=== PATIENT | male | born 1935 | race Caucasian/White ===

== ENCOUNTER 2017-02-28 05:15 | Emergency (ER) | payer MEDICARE ==
[2017-02-28 05:49] LABS: Bilirubin Negative (Negative); Blood, Urine Trace (Negative); Clarity Slightly Cloudy (Clear); Glucose, Urine (Dipstick) Negative (Negative); Leukocyte Negative (Negative); Nitrite Negative (Negative); Protein, Urine (Dipstick) Negative (Neg-Trace); Specific Gravity, Urine 1.025 (1.005-1.030); Urobilinogen 0.2 mg/dL (0.2-1.0); pH, Urine 5.5 (5.0-9.0)
[2017-02-28 05:52] LABS: #Basophils 0.1 thou/uL (0.0-0.2); #Eosinphils 0.3 thou/uL (0.0-0.7); #Lymphocytes 1.3 thou/uL (1.20-3.40); #Monocytes 0.8 thou/uL (0.11-0.59); #Neutrophils 4.9 thou/uL (1.40-6.50); %Basophils 1.1 % (0.0-1.0); %Eosinophils 3.8 % (0.0-10.0); %Lymphocytes 17.3 % (21.0-51.0); %Monocytes 10.7 % (0.0-10.0); %Neutrophils 67.2 % (42.0-75.0); Mean Corpuscular HGB CONC 33.1 g/dL (32.0-36.0); Mean Corpuscular Hemoglobin 31.1 pg (27.0-31.0); Mean Corpuscular Volume 93.8 fl (80.0-94.0); Mean Platelet Volume 6.3 fL (7.4-10.4); Platelet Count 169 thou/uL (130-400); RBC Distribution Width 12.6 % (11.5-14.5); Red Blood Cell (RBC) Count 4.84 mill/uL (4.70-6.10); White Blood Cell (WBC) Count 7.2 thou/uL (4.8-10.8)
[2017-02-28 06:05] LABS: Bacteria/HPF None Seen HPF (None Seen); Crystals/HPF RARE CA OXALATE HPF (Negative); Hyaline Casts/LPF NONE SEEN LPF (0-3 Hyaline); RBC/HPF 0-3 HPF (0-3); Squamous Epithelial 0-3 HPF (0-3); WBC/HPF 0-3 HPF (0-3)
[2017-02-28 06:06] LABS: ALT (SGPT) 21 U/L (8-55); AST (SGOT) 18 U/L (5-34); Albumin 3.6 g/dL (3.4-4.8); Alkaline Phosphatase 96 U/L (40-150); Anion Gap 14 mmol/L (10-20); BUN (Urea Nitrogen) 21 mg/dL (8.4-25.7); Bilirubin, Total 0.4 mg/dL (0.2-1.2); Calc. Creatinine Clearance 0 mL/min (70-130); Calcium 9.2 mg/dL (7.8-10.44); Carbon Dioxide 24 mmol/L (23-31); Chloride 105 mmol/L (98-107); Estimated GFR-MDRD 64; Globulin 2.8 g/dL (2.4-3.5); Glucose 106 mg/dL (83-110); Potassium 3.9 mmol/L (3.5-5.1); Protein, Total 6.4 g/dL (5.8-8.1); Sodium 139 mmol/L (136-145)
--- NOTE | 2017-02-28 16:54 | CT ---
PRELIMINARY REPORT/[facility]/EMERGENCY AFTER HOURS PROCEDURE: Addendum created by Navid Rendon DO on 02/28/2017 7:29 AM Central Time ([place] & [place]) EXAM: CT Abdomen and Pelvis With Intravenous Contrast CLINICAL HISTORY: 82 years old, male; Pain; Abdominal pain; Prior surgery; Surgery date: 6+ months; Surgery type: Ellen ; Patient HX: Generalized abd pain x 2 years since r inguinal hernia repair with mesh, states it has generally been worse x a few months but that since last night around 6pm he has also been having l si de abd pain. Denies n/v/d/f/c. S/P ellen, no HX of diverticulitis. Normal stools/urine, no bleeding. TECHNIQUE: Axial computed tomography images of the abdomen and pelvis with intravenous contrast. Coronal reformatted images were created and reviewed. CONTRAST: 85 mL of [id number] administered intravenously. COMPARISON: No relevant prior studies available. FINDINGS: Lower thorax: There are metallic leads in the right heart. ABDOMEN: Liver: Unremarkable. No mass. 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 The gal lbladder is absent. No ductal dilation. Pancreas: Unremarkable. No mass. No ductal dilation. Spleen: Unremarkable. No splenomegaly. Adrenals: Unremarkable. No mass. Kidneys and ureters: There is a small extrarenal pelvis on the left. There is no acute renal abnormal ity. No hydronephrosis. Stomach and bowel: There are moderate size duodenal diverticula in the second and third segments. There is no inflammation. Mild nonacute colonic diverticulosis is present. No obstruction. No mucosal thickening. Appendix: The appendix is normal. PELVIS: Bladder: Unremarkable. No mass. Reproductive: Unremarkable as visualized. ABDOMEN and PELVIS: Intraperitoneal space: Unremarkable. No free air. No significant fluid collection. Bones/joints: There is a syndesmophyte across the left sacroiliac joint. There is enthesopathy of the issue tuberosities. No acute fracture. No dislocation. Soft tissues: There is an intact right inguinal hernia mesh repair with no residual hernia detected. There is a small fat-containing, noninflamed umbilical hernia. Vasculature: There are moderate calcifications of the aorta. No abdominal aortic aneurysm. Lymph nodes: Unremarkable. No enlarged lymph nodes. IMPRESSION: 1. There is no acute intra-abdominal process. 2. There is an intact right inguinal hernia mesh repair with no residual hernia detected. 3. 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 4. Additional nonacute findings as described above. This interpretation was based upon the receipt of 243 image(s). Initial Report created on 02/28/2017 7:28 AM Central Time ([place] & [place]) EXAM: CT Abdomen and Pelvis With Intravenous Contrast CLINICAL HISTORY: 82 years old, male; Pain; Abdominal pain; Prior surgery; Surgery date: 6+ months; Surgery type: Ellen ; Patient HX: Generalized abd pain x 2 years since r inguinal hernia repair with mesh, states it has generally been worse x a few months but that since last night around 6pm he has also been having l si de abd pain. Denies n/v/d/f/c. S/P ellen, no HX of diverticulitis. Normal stools/urine, no bleeding. TECHNIQUE: Axial computed tomography images of the abdomen and pelvis with intravenous contrast. Coronal reformatted images were created and reviewed. CONTRAST: 85 mL of [id number] administered intravenously.COMPARISON: No relevant prior studies available. FINDINGS: Lower thorax: Her metallic leads in the right heart. ABDOMEN: Liver: Unremarkable. No mass. 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 The gal lbladder is absent. No ductal dilation. Pancreas: Unremarkable. No mass. No ductal dilation. Spleen: Unremarkable. No splenomegaly. Adrenals: Unremarkable. No mass. Kidneys and ureters: There is a small extrarenal pelvis on the left. There is no acute renal abnormal ity. No hydronephrosis. Stomach and bowel: There are moderate size duodenal diverticula in the second and third segments. There is no inflammation. Mild nonacute colonic diverticulosis is present. No obstruction. No mucosal thickening. Appendix: The appendix is normal. PELVIS: Bladder: Unremarkable. No mass. Reproductive: Unremarkable as visualized. ABDOMEN and PELVIS: Intraperitoneal space: Unremarkable. No free air. No significant fluid collection. Bones/joints: There is a syndesmophyte across the left sacroiliac joint. There is enthesopathy of the issue tuberosities. No acute fracture. No dislocation. Soft tissues: There is an intact right inguinal hernia mesh repair with no residual hernia detected. There is a small fat-containing, noninflamed umbilical hernia. Vasculature: There are moderate calcifications of the aorta. No abdominal aortic aneurysm. Lymph nodes: Unremarkable. No enlarged lymph nodes. IMPRESSION: 1. There is no acute intra-abdominal process. 2. There is an intact right inguinal hernia mesh repair with no residual hernia detected. 3. 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 4. Additional nonacute findings as described above. This interpretation was based upon the receipt of 243 image(s). Thank you for allowing us to participate in the care of your patient. Dictated and Authenticated by: Navid Rendon DO 02/28/2017 7:28 AM Central Time ([place] & [place]) FINAL REPORT ABDOMEN AND PELVIC CT WITH CONTRAST: FINDINGS/IMPRESSION: I agree with the preliminary interpretation. There is no evidence of an acute process. Additional details are discussed above. POS: [facility]
== END 2017-02-28 07:39 | disposition home or self-care (01) ==
LOC: SCSER 05:15
DX: R10.84 Generalized abdominal pain (principal); Z87.891 Personal history of nicotine dependence
CPT/HCPCS: 74177; 80053; 81003; 81015; 85025

== ENCOUNTER 2017-06-19 10:06 | Emergency (ER) | payer MEDICARE ==
[2017-06-19] MEDS ORDERED: Ketorolac Tromethamine 30 MG/ML VIAL ONE (10:41)
--- NOTE | 2017-06-19 11:54 | RAD ---
LEFT FOOT 3 VIEWS: HISTORY: Left foot pain. Arthritis. FINDINGS: Lisfranc joint alignment is anatomic. Plantar arch is maintained. Moderate degree of osteophytosis is present throughout the foot. Well-corticated ossification at the base of the 5th metatarsal has t he appearance of an old ununited fracture. Calcification of the distal Achilles tendon and posterior aspect of the plantar fascia is apparent o the lateral view. IMPRESSION: 1. Osteoarthritis left foot. No acute osseous abnormalities are demonstrated. No aggressive osseou s erosions. 2. 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 POS: [facility]
== END 2017-06-19 11:57 | disposition home or self-care (01) ==
LOC: SCSER 10:06
DX: L03.116 Cellulitis of left lower limb (principal); Z87.891 Personal history of nicotine dependence; Z79.01 Long term (current) use of anticoagulants; Z79.899 Other long term (current) drug therapy
CPT/HCPCS: 96372; J1885

== ENCOUNTER 2019-01-13 21:32 | Inpatient (IN) | payer MEDICARE ==
[2019-01-13 21:58] LABS: #Eosinphils 0.4 thou/uL (0.0-0.7); #Lymphocytes 1.8 thou/uL (1.20-3.40); #Monocytes 0.8 thou/uL (0.11-0.59); #Neutrophils 4.2 thou/uL (1.40-6.50); %Basophils 0.5 % (0.0-1.0); %Eosinophils 5.6 % (0.0-10.0); %Lymphocytes 24.4 % (21.0-51.0); %Neutrophils 58.5 % (42.0-75.0); Hemoglobin 14.7 g/dL (14.0-18.0); Mean Corpuscular HGB CONC 32.9 g/dL (32.0-36.0); Mean Corpuscular Volume 97.4 fL (78.0-98.0); Platelet Count 169 thou/uL (130-400); RBC Distribution Width 13.9 % (11.5-14.5); Red Blood Cell (RBC) Count 4.59 mill/uL (4.70-6.10); White Blood Cell (WBC) Count 7.2 thou/uL (4.8-10.8)
--- NOTE | 2019-01-13 22:17 | RAD ---
EXAM: Chest one view: HISTORY: Chest pain COMPARISON: 11/03/2015 FINDINGS: Stable left ICD. Heart size: Minimally enlarged but stable Lungs: Clear of acute process. No evidence for confluent pneumonia, pleural effusion, acute edema, or pneumothorax, or other signifi cant acute process. IMPRESSION: No significant acute intrathoracic disease. Atherosclerosis of the aorta.
[2019-01-13 22:19] LABS: ALT (SGPT) 17 U/L (8-55); AST (SGOT) 18 U/L (5-34); Alkaline Phosphatase 93 U/L (40-110); Anion Gap 11 mmol/L (10-20); BUN (Urea Nitrogen) 19 mg/dL (8.4-25.7); Bilirubin, Total 0.5 mg/dL (0.2-1.2); Calc. Creatinine Clearance 0 mL/min (70-130); Calcium 9.5 mg/dL (7.8-10.44); Carbon Dioxide 30 mmol/L (23-31); Chloride 103 mmol/L (98-107); Estimated GFR-MDRD 55; Globulin 2.8 g/dL (2.4-3.5); Glucose 149 mg/dL (83-110); Potassium 3.9 mmol/L (3.5-5.1); Protein, Total 6.8 g/dL (5.8-8.1); Sodium 140 mmol/L (136-145)
[2019-01-13] MEDS ORDERED: Aspirin 325 MG TAB ONE (22:40)
[2019-01-13] MEDS ORDERED: Nitroglycerin 2% Ointment 1 INCH/1 GM Packet ONE (22:40)
[2019-01-14 01:44] LABS: Troponin I Less than 0.010 ng/mL (< 0.028)
[2019-01-14 05:00] LABS: Troponin I 0.015 ng/mL (< 0.028)
--- NOTE | 2019-01-14 07:37 | PDOC.HHP ---
Hospitalist HPI - History of Present Illness Chest pain History of Present Illness: 84 year old male with PMH CAD, stents x 3, atrial fibrillation on eliquis who presented to ED for chest pain, he reports he originally developed a shoulder pain that radiated to upped back, denies any trauma/repetative use/heavy lifting , the pain was worse with sleeping and his L hand would nair asleep when he lays on that side. Yesterday ,the pain migrated to L anterior chest, substernal , nt relieved by OTC ibuprofen, he went to Dr Yoon clinic and was not able to be seen right then, scheduled for appointment the following AM, pain resolved for a time and patient went home, the pain the returned at 7pm, patient went to ED. In ED, troponin x 1 negative, nitro applied without resolution, EKG without acute changes, rate contrlled afib in 70s reviewed by me, currently present on interview. Sound hospitalist consulted for observation admission. Patient sees Dr Yoon of cardiology as outpatient, has 3 stents the last wsa placed 3 years ago, has a pacemaker, has atrial fibrillation and on eliquis, he does not remember much about most recent testing (echo/stress test). He has chronic pitting edema. ED Course: Tele afib rate controlled CXR no acute processes EKG no acute findings troponin negative Hospitalist ROS - Review of Systems Constitutional: reports: chills. denies: fever, sweats Eyes: denies: pain, vision change ENT: denies: nose congestion, mouth swelling, throat pain Respiratory: denies: cough, shortness of breath, SOB with excertion, pleuritic pain Cardiovascular: reports: chest pain, edema (chronic). denies: palpitations Gastrointestinal: denies: nausea, vomiting, abdominal pain Genitourinary: denies: dysuria, frequency Musculoskeletal: reports: shoulder pain (L shoulder), arm pain. denies: neck pain Skin: denies: rash, lesions Neurological: denies: weakness, numbness All other systems reviewed; all pertinent +/- noted in HPI/Subj Hospitalist History - Past Medical History Other Medical History: CAD, stents x 3 Pacemaker atrial fibrillation macular degeneration - Past Surgical History Other Surgical History: Hand surgery Hernia repair Nose reconstruction Cholecystectomy T&A - Family History Other Family History: CAD in brother - Social History Other Social History: Drinks socially Denies drug use Former tobacco user, quit > 10 years ago - Exam General Appearance: NAD, awake alert Eye: PERRL, anicteric sclera ENT: normocephalic atraumatic, moist mucosa Neck: supple, no JVD Heart: no murmur, no gallops, no rubs, irregular Respiratory: CTAB, no wheezes, no rales, no ronchi Gastrointestinal: soft, non-tender, non-distended, normal bowel sounds Extremities: 1+ LE edema Skin: no lesions, no rashes Neurological: cranial nerve grossly intact, normal sensation to touch, no weakness, no focal deficits Musculoskeletal: normal tone, normal strength Psychiatric: normal affect, normal behavior, A&O x 3 Hospitalist Results - Labs Result Diagrams: 01/13/19 21:48 01/13/19 21:48 Lab results: WBC 7.2 thou/uL (4.8-10.8) 01/13/19 21:48 Hgb 14.7 g/dL (14.0-18.0) 01/13/19 21:48 Hct 44.7 % (42.0-52.0) 01/13/19 21:48 MCV 97.4 fL (78.0-98.0) 01/13/19 21:48 Plt Count 169 thou/uL (130-400) 01/13/19 21:48 Neutrophils % 58.5 % (42.0-75.0) 01/13/19 21:48 Sodium 140 mmol/L (136-145) 01/13/19 21:48 Potassium 3.9 mmol/L (3.5-5.1) 01/13/19 21:48 Chloride 103 mmol/L (98-107) 01/13/19 21:48 Carbon Dioxide 30 mmol/L (23-31) 01/13/19 21:48 BUN 19 mg/dL (8.4-25.7) 01/13/19 21:48 Creatinine 1.26 mg/dL (0.7-1.3) 01/13/19 21:48 Glucose 149 mg/dL (83-110) H 01/13/19 21:48 Calcium 9.5 mg/dL (7.8-10.44) 01/13/19 21:48 Total Bilirubin 0.5 mg/dL (0.2-1.2) 01/13/19 21:48 AST 18 U/L (5-34) 01/13/19 21:48 ALT 17 U/L (8-55) 01/13/19 21:48 Alkaline Phosphatase 93 U/L (40-110) 01/13/19 21:48 Troponin I 0.015 ng/mL (< 0.028) 01/14/19 03:50 Serum Total Protein 6.8 g/dL (5.8-8.1) 01/13/19 21:48 Albumin 4.0 g/dL (3.4-4.8) 01/13/19 21:48 Additional comment: EKG reviewed, atrial fibrillation, no acute ST changes Hospitalist H&P A/P - Plan Plan: 84 year old male with PMH afib, CAD, pacemaker, stents, macular degeneration being treated for: # atypical chest pain - began as shoulder pain which was positional, migrated to anterior chest wall, substernal, not tender - rule out [place] today and if negative could pursue MSK workup w/ physical therapy and perhaps investigation into vasculature of arm and neck - admit to telemetry under obs status, consult Dr Yoon, trend troponins, order nuclear stress test, patient NPO, resume home medications including ASA # atrial fibrillation w/ pacemaker - consult Dr Yoon, continue home medications, on eliquis # macular degeneration - outpatient follow up # HTN - resume home medications, PRN medications will be made available
[2019-01-14] MEDS ORDERED: Nitroglycerin 0.4 MG TAB (25 Tab Bottle) SL PRN (08:03)
[2019-01-14] MEDS ORDERED: Non-Formulary Item 1 EACH (Zantac 150 MG) PO PRN (08:03)
[2019-01-14] MEDS ORDERED: Acetaminophen 325 MG TAB PO PRN (08:05)
[2019-01-14] MEDS ORDERED: Ondansetron PF 4 MG/2 ML Vial IVP PRN (08:05)
[2019-01-14] MEDS ORDERED: cloNIDine 0.1 MG TAB PO PRN (08:07)
[2019-01-14] MEDS ORDERED: Promethazine HCl 12.5 MG in Sodium Chloride 0.9% 50 ML IVPB PRN (08:07)
[2019-01-14] MEDS ORDERED: hydrALAZINE 20 MG/ML VIAL SLOW IVP PRN (08:07)
[2019-01-14] MEDS ORDERED: Famotidine 20 MG TAB PO PRN (08:19)
[2019-01-14] MEDS: HYDROcodone/Acetaminophen 5/325 mg Tablet PO PRN ×2 (08:42→18:44)
[2019-01-14] MEDS: Carvedilol 25 MG TAB PO SCH ×3 (08:43→21:11)
[2019-01-14] MEDS: Amlodipine 5 MG TAB PO SCH (08:43)
[2019-01-14] MEDS ORDERED: Apixaban 2.5 MG TAB PO SCH (09:00)
[2019-01-14] MEDS ORDERED: Furosemide 20 MG TAB PO SCH (09:00)
[2019-01-14] MEDS ORDERED: Non-Formulary Item 1 EACH (Amlodipine Besylate [Amlodipine Besylate] 2.5 MG) PO SCH (09:00)
[2019-01-14] MEDS ORDERED: Prevnar 13-Val Conj/PF 0.5 ML SYRINGE IM ONE (09:00)
[2019-01-14] MEDS ORDERED: Non-Formulary Item 1 EACH (Carvedilol [Coreg] 25 MG) PO SCH (09:00)
[2019-01-14 10:03] LABS: Troponin I 0.016 ng/mL (< 0.028)
[2019-01-14] MEDS ORDERED: Nitroglycerin 2% Ointment 1 INCH/1 GM Packet TOP SCH (10:15)
[2019-01-14] MEDS: Senokot S 8.6-50 MG TAB PO SCH ×2 (12:35→21:11)
[2019-01-14] MEDS ORDERED: Communication Order-Pharmacy FS SCH (13:15)
[2019-01-14 16:03] LABS: Troponin I 0.019 ng/mL (< 0.028)
--- NOTE | 2019-01-14 19:53 | CON ---
DATE OF CONSULTATION: 01/14/2019 REASON FOR CONSULTATION: Unstable angina. HISTORY OF PRESENT ILLNESS: Mr. Theodore Hampton is a very pleasant 84-year-old gentleman with recurrent left shoulder and left anterior upper chest pain. Mr. Hampton has a long cardiac history. He initially presented with symptoms he said was very similar to what he is having now in the left upper chest and left posterior chest. Troponin levels were indeterminate. He went to the cardiac catheterization lab, was found have a critical stenosis in the proximal LAD. He had 2 stents placed. It was 3.5 mm x 25 mm Cypher and another 3.5 x 25 mm Cypher, placed and post dilated to high pressure to 4 mm. Intravascular ultrasound was done showing good expansion and apposition. It was noted that he needs an FL4.5 catheter. Five years later in 2012, he represented with the same type of symptoms. At this time, he had a 70% stenosis distal to the stent and one stent was placed , a 3.0 x 16 mm PROMUS, was positioned and deployed, and then post dilated to 3.5 x 12 mm balloon. The initial stent did not have significant restenosis. FFR showed there was no flow-limiting disease within the initial stent. The patient did well until yesterday, had a recurrence of pain similar to what he had before, in left upper chest to the left posterior chest. He came by our office, he stated he had had some of that, but the pain had resolved. An appointment was made to see him this morning, but to go to the emergency room if it recurred. The patient's pain did recur. He came back last night and has been admitted. He is still having pain off and on in that same area. Troponin levels were initially negative, still in the negative range, but as outlined below. There are no EKG changes. PAST MEDICAL HISTORY: 1. Chronic atrial fibrillation. 2. Previous pacemaker insertion. 3. Previous stent implantations. 4. Statin intolerance. 5. 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 Other past history is positive for gout. 6. History of diastolic heart failure, controlled on low-dose diuretics. MEDICATIONS: At home include; 1. Coreg 25 mg twice a day. 2. Zantac. 3. Amlodipine 2.5 mg a day. 4. Aspirin 325 mg a day. 5. Apixaban twice a day. He is unsure of the dose. I think he was actually taking 5 mg twice a day. We will need to check the dose. He took a dose of that yesterday morning and he got 2.5 mg this morning. REVIEW OF SYSTEMS: CONSTITUTIONAL: No significant weight gain or loss. VISION: No changes. HEARING: No changes. PULMONARY: No cough or wheezing. GASTROINTESTINAL: No nausea, vomiting, or diarrhea. SKIN: No rashes. NEUROLOGIC: No unilateral weakness or numbness. PSYCHIATRIC: No unusual depression or anxiety. PHYSICAL EXAMINATION: GENERAL: This is a pleasant 84-year-old man, in no distress. VITAL SIGNS: Blood pressure 156/73, pulse is 70 and it is irregular. EYES: Sclerae are nonicteric. MOUTH: Mucous membranes are moist. NECK: Supple. No lymphadenopathy. LUNGS: Clear. CARDIAC: Normal S1, normal S2. There is no murmur, rub, or gallop. ABDOMEN: Soft and nontender. EXTREMITIES: Warm and dry. No clubbing or cyanosis. There is mild peripheral edema. PERTINENT LABORATORY DATA: Creatinine 1.26, estimated GFR is 55. Troponins are all less than 0.010 and then the most recent one is 0.016, still in the negative range. EKG showed atrial fibrillation with appropriate ventricular pacing and sensing. ASSESSMENT: 1. 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 2. Previous stent in 2007 and then in 2012 as outlined above, now with recurrent pain, he said it is identical to his initial pain. 3. 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 PLAN: 1. Stop Eliquis. 2. We will begin Lovenox. 3. Tentatively plan cardiac catheterization on Thursday, could be done earlier if needed. Ideally should be off Eliquis for 36 hours prior to the procedure. Dr. Michael will be seeing the patient this weekend and we will also give him prednisone prior to the procedure, try to avoid gout and also try to avoid intravascular depletion. The patient understands risk of cardiac catheterization, stroke, heart attack, iodine allergy, interference of blood supply to leg or kidney, stent thrombosis, stent restenosis. He understands and wished to proceed. Job ID: [id number] [facility]
[2019-01-14] MEDS: Enoxaparin Sodium 100 MG/ML SYRINGE SC SCH (20:11)
[2019-01-14] MEDS ORDERED: Aspirin Chewable 81 MG TAB PO SCH (21:00)
[2019-01-14 21:03] LABS: Troponin I Less than 0.010 ng/mL (< 0.028)
[2019-01-14] MEDS: Morphine 2 MG/ML SYRINGE SLOW IVP PRN (21:10)
[2019-01-14] MEDS: Aspirin Chewable 81 MG TAB PO SCH (21:12)
[2019-01-14] MEDS: Nitroglycerin 2% Ointment 1 INCH/1 GM Packet TOP SCH (21:13)
[2019-01-15] MEDS: Morphine 2 MG/ML SYRINGE SLOW IVP PRN ×2 (04:15→19:15)
[2019-01-15 05:00] LABS: #Basophils 0.1 thou/uL (0.0-0.2); #Eosinphils 0.4 thou/uL (0.0-0.7); #Lymphocytes 1.8 thou/uL (1.20-3.40); #Monocytes 0.8 thou/uL (0.11-0.59); #Neutrophils 3.9 thou/uL (1.40-6.50); %Basophils 0.9 % (0.0-1.0); %Eosinophils 5.8 % (0.0-10.0); %Lymphocytes 26.1 % (21.0-51.0); %Monocytes 10.9 % (0.0-10.0); %Neutrophils 56.2 % (42.0-75.0); Hemoglobin 14.7 g/dL (14.0-18.0); Mean Corpuscular HGB CONC 33.3 g/dL (32.0-36.0); Mean Corpuscular Hemoglobin 32.4 pg (27.0-31.0); Mean Corpuscular Volume 97.3 fL (78.0-98.0); Mean Platelet Volume 8.4 fL (7.4-10.4); Platelet Count 180 thou/uL (130-400); RBC Distribution Width 14.2 % (11.5-14.5); Red Blood Cell (RBC) Count 4.53 mill/uL (4.70-6.10); White Blood Cell (WBC) Count 6.9 thou/uL (4.8-10.8)
[2019-01-15 05:21] LABS: Anion Gap 9 mmol/L (10-20); BUN (Urea Nitrogen) 15 mg/dL (8.4-25.7); Calc. Creatinine Clearance 82 mL/min (70-130); Carbon Dioxide 28 mmol/L (23-31); Chloride 105 mmol/L (98-107); Estimated GFR-MDRD 62; Glucose 104 mg/dL (83-110); Sodium 138 mmol/L (136-145)
[2019-01-15] MEDS: Carvedilol 25 MG TAB PO SCH ×2 (08:37→20:50)
[2019-01-15] MEDS: Senokot S 8.6-50 MG TAB PO SCH ×2 (08:37→20:51)
[2019-01-15] MEDS: Amlodipine 5 MG TAB PO SCH (08:37)
[2019-01-15] MEDS: Nitroglycerin 2% Ointment 1 INCH/1 GM Packet TOP SCH ×2 (11:19→20:50)
[2019-01-15] MEDS: Enoxaparin Sodium 100 MG/ML SYRINGE SC SCH ×2 (11:19→20:51)
--- NOTE | 2019-01-15 15:08 | PDOC.CPN ---
- Subjective Date: 01/15/19 Time: 15:10 Interval history: The pt seen and examined. No overnight events. No cardiac complaints. - Objective Allergies/Adverse Reactions: Allergies Allergy/AdvReac Type Severity Reaction Status Date / Time shellfish derived Allergy Verified 11/03/15 18:08 [id number] Reductase Allergy Verified 11/21/13 16:33 Inhibitor Visit Medications: Current Medications Acetaminophen (Tylenol) 650 mg PO Q4H PRN PRN Reason: Headache/Fever/Mild Pain (1-3) Hydrocodone Bitart/Acetaminophen ([place] 5/325) 1 tab PO Q4H PRN PRN Reason: Moderate Pain (4-6) Last Admin: 01/14/19 18:44 Dose: 1 tab Amlodipine Besylate (Norvasc) 2.5 mg PO DAILY [facility] Last Admin: 01/15/19 08:37 Dose: 2.5 mg Aspirin (Aspirin Chewable) 81 mg PO QPM [facility] Last Admin: 01/14/19 21:12 Dose: 81 mg Carvedilol (Coreg) 25 mg PO BID [facility] Last Admin: 01/15/19 08:37 Dose: 25 mg Clonidine (Catapres) 0.1 mg PO Q4H PRN PRN Reason: SBP > 160 use second Diazepam (Valium) 5 mg PO WILLCALL [facility] Stop: 01/17/19 11:00 Enoxaparin Sodium (Lovenox) 100 mg SC 0900,2100 [facility] Stop: 01/16/19 21:01 Last Admin: 01/15/19 11:19 Dose: 100 mg Famotidine (Pepcid) 20 mg PO PRN PRN PRN Reason: HEARTBURN Hydralazine HCl (Apresoline) 10 mg SLOW IVP Q6H PRN PRN Reason: SBP GREATER THAN 160 Promethazine HCl 12.5 mg/ (Sodium Chloride) 50.5 mls @ 202 mls/hr IVPB Q6H PRN PRN Reason: Nausea/vomiting use second Sodium Chloride (Normal Saline 0.9%) 1,000 mls @ 100 mls/hr IV .Q10H [facility] Miscellaneous Information (Communication Order-Pharmacy) 0 each FS ONE [facility] Stop: 01/17/19 12:00 Morphine Sulfate (Morphine) 2 mg SLOW IVP Q4H PRN PRN Reason: BREAKTHROUGH PAIN Last Admin: 01/15/19 04:15 Dose: 2 mg Nitroglycerin (Nitrostat) 0.4 mg SL Q5MIN PRN PRN Reason: Angina Nitroglycerin (Nitro-Bid 2% Ointment) 1 inch TOP BID [facility] Last Admin: 01/15/19 11:19 Dose: 1 inch Ondansetron HCl (Zofran) 4 mg IVP Q6H PRN PRN Reason: Nausea/Vomiting Pantoprazole Sodium (Protonix) 40 mg PO DAILY [facility] Last Admin: 01/15/19 08:37 Dose: 40 mg Prednisone (Prednisone) 40 mg PO Q6HR [facility] Stop: 01/17/19 06:01 Senna/Docusate Sodium (Senokot S) 1 tab PO BID [facility] Last Admin: 01/15/19 08:37 Dose: Not Given Sodium Chloride (Flush - Normal Saline) 10 ml IVF Q12HR [facility] Last Admin: 01/15/19 11:23 Dose: 10 ml Sodium Chloride (Flush - Normal Saline) 10 ml IVF PRN PRN PRN Reason: Saline Flush Vital Signs & Weight: Vital Signs Temp Pulse Resp BP BP BP Pulse Ox 01/15/19 11:10 97.5 F L 61 12 122/69 94 L 01/15/19 08:37 73 01/15/19 07:50 97.4 F L 73 16 131/83 94 L 01/15/19 04:00 97.2 F L 77 20 128/74 128/74 94 L Weight 258 lb - Physical Exam General: alert & oriented x3 HEENT: mucus membranes moist Neck: supple neck Cardiac: irregularly regular Lungs: clear to auscultation Neuro: cranial nerve 2-12 intact Abdomen: unremarkable Skin: clear Musculoskeletal: normal range of motion - Labs Result Diagrams: 01/15/19 04:08 01/15/19 04:08 Troponin/CKMB Troponin I Less than 0.010 ng/mL (< 0.028) 01/14/19 20:28 - Telemetry Sinus rhythms and dysrhythmias: other (V paced and afib) - Assessment/Plan Assessment/Plan: 1. CAD with hx of multiple stents - plan for LHC on Thursday; On Lovenox, BBlocker , and NTG paste. 2. Chronic Afib - well controlled HR; holding eliquis; on Lovenox 3. chronic diastolic HF - stable with RA 4. hx of PM placement MAR reviewed Pt. seen and eval. by me. I agree with the A/P by the [employer]. Chest clear. Irreg/ irreg. gjmays
[2019-01-15] MEDS: Aspirin Chewable 81 MG TAB PO SCH (20:51)
--- NOTE | 2019-01-15 22:25 | PDOC.HOSPP ---
- Subjective Encounter Date: 01/15/19 Encounter Time: 15:00 Subjective: CC: chest pain Subjective: no current chest pain. cardiology saw alphonse, heart cath planned for Thursday - Objective Vital Signs & Weight: Vital Signs (12 hours) Temp Pulse Resp BP Pulse Ox 01/15/19 16:03 98.9 F 67 20 143/83 H 95 01/15/19 11:10 97.5 F L 61 12 122/69 94 L Weight Weight 258 lb Result Diagrams: 01/15/19 04:08 01/15/19 04:08 Hospitalist ROS - Medication Medications: Active Medications Generic Name Dose Route Start Last Admin Trade Name Freq PRN Reason Stop Dose Admin Hydrocodone Bitart/Acetaminophen 1 tab 01/14/19 08:05 01/14/19 18:44 [place] 5/325 PO 1 tab Q4H PRN Administration Moderate Pain (4-6) Amlodipine Besylate 2.5 mg 01/14/19 09:00 01/15/19 08:37 Norvasc PO 2.5 mg DAILY JOSE Administration Aspirin 81 mg 01/14/19 21:00 01/15/19 20:51 Aspirin Chewable PO 81 mg QPM JOSE Administration Carvedilol 25 mg 01/14/19 09:00 01/15/19 20:50 Coreg PO 25 mg BID JOSE Administration Enoxaparin Sodium 100 mg 01/14/19 21:00 01/15/19 20:51 Lovenox SC 01/16/19 21:01 100 mg 0900,2100 JOSE Administration Morphine Sulfate 2 mg 01/14/19 08:18 01/15/19 19:15 Morphine SLOW IVP 2 mg Q4H PRN Administration BREAKTHROUGH PAIN Nitroglycerin 1 inch 01/14/19 21:00 01/15/19 20:50 Nitro-Bid 2% Ointment TOP 1 inch BID JOSE Administration Pantoprazole Sodium 40 mg 01/14/19 09:00 01/15/19 08:37 Protonix PO 40 mg DAILY JOSE Administration Senna/Docusate Sodium 1 tab 01/14/19 09:00 01/15/19 20:51 Senokot S PO 1 tab BID JOSE Administration Sodium Chloride 10 ml 01/14/19 21:00 01/15/19 20:55 Flush - Normal Saline IVF 10 ml Q12HR JOSE Administration - Exam General Appearance: NAD, awake alert Eye: PERRL, anicteric sclera ENT: normocephalic atraumatic, no oropharyngeal lesions, moist mucosa Neck: supple, symmetric, no JVD, no thyromegaly, no lymphadenopathy, no carotid bruit Heart: RRR, no murmur, no gallops, no rubs, normal peripheral pulses Respiratory: CTAB, no wheezes, no rales, no ronchi, normal chest expansion, no tachypnea, normal percussion Gastrointestinal: soft, non-tender, non-distended, normal bowel sounds, no palpable masses, no hepatomegaly, no splenomegaly, no bruit Extremities: no cyanosis, no clubbing, no edema Skin: normal turgor, no lesions, no rashes Neurological: cranial nerve grossly intact, normal sensation to touch, no weakness, no focal deficits, no new deficit Musculoskeletal: normal tone, normal strength, no muscle wasting Psychiatric: normal affect, normal behavior, A&O x 3 Hosp A/P - Plan 84 year old male with PMH afib, CAD, pacemaker, stents, macular degeneration being treated for: # atypical chest pain - began as shoulder pain which was positional, migrated to anterior chest wall, substernal, not tender - rule out [place] and if negative could pursue MSK workup w/ physical therapy and perhaps investigation into vasculature of arm and neck - admit to telemetry under obs status, consulted Dr Yoon, heart cath thursday # atrial fibrillation w/ pacemaker - consult Dr Yoon, continue home medications, on eliquis # macular degeneration - outpatient follow up # HTN - resume home medications, PRN medications will be made available
[2019-01-16] MEDS: Amlodipine 5 MG TAB PO SCH (09:02)
[2019-01-16] MEDS: Carvedilol 25 MG TAB PO SCH ×2 (09:02→20:52)
[2019-01-16] MEDS: Enoxaparin Sodium 100 MG/ML SYRINGE SC SCH ×2 (09:03→20:51)
[2019-01-16] MEDS: Nitroglycerin 2% Ointment 1 INCH/1 GM Packet TOP SCH ×2 (09:03→20:52)
[2019-01-16] MEDS: Senokot S 8.6-50 MG TAB PO SCH ×2 (09:03→20:51)
[2019-01-16] MEDS: Morphine 2 MG/ML SYRINGE SLOW IVP PRN ×2 (09:05→18:12)
--- NOTE | 2019-01-16 15:38 | PDOC.CPN ---
- Subjective Date: 01/16/19 Time: 15:40 Interval history: The pt seen and examined. No overnight events. The pt cont. having discomfort to Lt upper chest which radiate to his back - Objective Allergies/Adverse Reactions: Allergies Allergy/AdvReac Type Severity Reaction Status Date / Time shellfish derived Allergy Verified 11/03/15 18:08 [id number]-Vcs-Vug Reductase Allergy Verified 11/21/13 16:33 Inhibitor Visit Medications: Current Medications Acetaminophen (Tylenol) 650 mg PO Q4H PRN PRN Reason: Headache/Fever/Mild Pain (1-3) Hydrocodone Bitart/Acetaminophen ([place] 5/325) 1 tab PO Q4H PRN PRN Reason: Moderate Pain (4-6) Last Admin: 01/14/19 18:44 Dose: 1 tab Amlodipine Besylate (Norvasc) 2.5 mg PO DAILY [facility] Last Admin: 01/16/19 09:02 Dose: 2.5 mg Aspirin (Aspirin Chewable) 81 mg PO QPM [facility] Last Admin: 01/15/19 20:51 Dose: 81 mg Carvedilol (Coreg) 25 mg PO BID [facility] Last Admin: 01/16/19 09:02 Dose: 25 mg Clonidine (Catapres) 0.1 mg PO Q4H PRN PRN Reason: SBP > 160 use second Diazepam (Valium) 5 mg PO WILLCALL [facility] Stop: 01/17/19 11:00 Enoxaparin Sodium (Lovenox) 100 mg SC 0900,2100 [facility] Stop: 01/16/19 21:01 Last Admin: 01/16/19 09:03 Dose: 100 mg Famotidine (Pepcid) 20 mg PO PRN PRN PRN Reason: HEARTBURN Hydralazine HCl (Apresoline) 10 mg SLOW IVP Q6H PRN PRN Reason: SBP GREATER THAN 160 Promethazine HCl 12.5 mg/ (Sodium Chloride) 50.5 mls @ 202 mls/hr IVPB Q6H PRN PRN Reason: Nausea/vomiting use second Sodium Chloride (Normal Saline 0.9%) 1,000 mls @ 100 mls/hr IV .Q10H [facility] Miscellaneous Information (Communication Order-Pharmacy) 0 each FS ONE [facility] Stop: 01/17/19 12:00 Morphine Sulfate (Morphine) 2 mg SLOW IVP Q4H PRN PRN Reason: BREAKTHROUGH PAIN Last Admin: 01/16/19 09:05 Dose: 2 mg Nitroglycerin (Nitrostat) 0.4 mg SL Q5MIN PRN PRN Reason: Angina Nitroglycerin (Nitro-Bid 2% Ointment) 1 inch TOP BID [facility] Last Admin: 01/16/19 09:03 Dose: 1 inch Ondansetron HCl (Zofran) 4 mg IVP Q6H PRN PRN Reason: Nausea/Vomiting Pantoprazole Sodium (Protonix) 40 mg PO DAILY [facility] Last Admin: 01/16/19 09:03 Dose: 40 mg Prednisone (Prednisone) 40 mg PO Q6HR [facility] Stop: 01/17/19 06:01 Senna/Docusate Sodium (Senokot S) 1 tab PO BID [facility] Last Admin: 01/16/19 09:03 Dose: 1 tab Sodium Chloride (Flush - Normal Saline) 10 ml IVF Q12HR [facility] Last Admin: 01/16/19 09:03 Dose: 10 ml Sodium Chloride (Flush - Normal Saline) 10 ml IVF PRN PRN PRN Reason: Saline Flush Vital Signs & Weight: Vital Signs Temp Pulse Resp BP BP BP BP 01/16/19 11:05 97.6 F 73 18 144/76 H 01/16/19 09:02 75 142/82 H 01/16/19 08:16 98.4 F 82 18 183/98 H 01/16/19 04:00 97.8 F 70 18 134/79 134/79 Pulse Ox 01/16/19 11:05 95 01/16/19 09:02 01/16/19 08:16 96 01/16/19 04:00 96 Weight 258 lb - Physical Exam General: alert & oriented x3 HEENT: mucus membranes moist Neck: supple neck Cardiac: regular rate and rhythm, S1/S2 Lungs: clear to auscultation Neuro: cranial nerve 2-12 intact Abdomen: unremarkable Extremities: no cyanosis Skin: clear Musculoskeletal: normal range of motion - Labs Result Diagrams: 01/15/19 04:08 01/15/19 04:08 Troponin/CKMB Troponin I Less than 0.010 ng/mL (< 0.028) 01/14/19 20:28 - Telemetry Sinus rhythms and dysrhythmias: other (Vpaced with underlying rhythm Afib) - Assessment/Plan Assessment/Plan: 1. CAD with hx of multiple stents - plan for LHC on Thursday; On Lovenox, BBlocker , and NTG paste. also on Predonisone for Iodine prophylaxis 2. Chronic Afib - well controlled HR; holding eliquis; on Lovenox 3. chronic diastolic HF - stable with RA 4. hx of PM placement MAR reviewed * Dr Wiggins's pt
[2019-01-16] MEDS: predniSONE 20 MG TAB PO SCH ×2 (18:07→23:41)
--- NOTE | 2019-01-16 18:15 | PDOC.HOSPP ---
- Subjective Subjective: Seen and examined. Patient complaining of left-sided chest pain. Plan for heart cath tomorrow a.m. Breathing comfortably. Denies palpitations. All questions answered in detail. - Objective Vital Signs & Weight: Vital Signs (12 hours) Temp Pulse Resp BP BP BP BP 01/16/19 15:35 97.8 F 83 16 151/79 H 01/16/19 11:05 97.6 F 73 18 144/76 H 01/16/19 09:02 75 142/82 H 01/16/19 08:16 98.4 F 82 18 183/98 H Pulse Ox 01/16/19 15:35 95 01/16/19 11:05 95 01/16/19 09:02 01/16/19 08:16 96 Weight Weight 258 lb I&O: 01/15/19 01/16/19 01/17/19 06:59 06:59 06:59 Intake Total 450 Balance 450 Result Diagrams: 01/15/19 04:08 01/15/19 04:08 Radiology Reviewed by me: Yes Hospitalist ROS - Review of Systems All other systems reviewed; all pertinent +/- noted in HPI/Subj - Medication Medications: Active Medications Generic Name Dose Route Start Last Admin Trade Name Freq PRN Reason Stop Dose Admin Hydrocodone Bitart/Acetaminophen 1 tab 01/14/19 08:05 01/14/19 18:44 [place] 5/325 PO 1 tab Q4H PRN Administration Moderate Pain (4-6) Amlodipine Besylate 2.5 mg 01/14/19 09:00 01/16/19 09:02 Norvasc PO 2.5 mg DAILY JOSE Administration Aspirin 81 mg 01/14/19 21:00 01/15/19 20:51 Aspirin Chewable PO 81 mg QPM JOSE Administration Carvedilol 25 mg 01/14/19 09:00 01/16/19 09:02 Coreg PO 25 mg BID JOSE Administration Enoxaparin Sodium 100 mg 01/14/19 21:00 01/16/19 09:03 Lovenox SC 01/16/19 21:01 100 mg 0900,2100 JOSE Administration Morphine Sulfate 2 mg 01/14/19 08:18 01/16/19 09:05 Morphine SLOW IVP 2 mg Q4H PRN Administration BREAKTHROUGH PAIN Nitroglycerin 1 inch 01/14/19 21:00 01/16/19 09:03 Nitro-Bid 2% Ointment TOP 1 inch BID JOSE Administration Pantoprazole Sodium 40 mg 01/14/19 09:00 01/16/19 09:03 Protonix PO 40 mg DAILY JOSE Administration Prednisone 40 mg 01/16/19 18:00 01/16/19 18:07 Prednisone PO 01/17/19 06:01 40 mg Q6HR JOSE Administration Senna/Docusate Sodium 1 tab 01/14/19 09:00 01/16/19 09:03 Senokot S PO 1 tab BID JOSE Administration Sodium Chloride 10 ml 01/14/19 21:00 01/16/19 09:03 Flush - Normal Saline IVF 10 ml Q12HR JOSE Administration - Exam General Appearance: NAD, awake alert Eye: anicteric sclera ENT: normocephalic atraumatic, moist mucosa Neck: supple, symmetric, no lymphadenopathy Heart: no murmur, no gallops, no rubs, irregular Respiratory: CTAB, no wheezes, no rales, no ronchi Gastrointestinal: soft, non-tender, non-distended, normal bowel sounds, no guarding, no rigidity Extremities: no clubbing, no edema Skin: no lesions, no rashes Neurological: cranial nerve grossly intact, no focal deficits Musculoskeletal: generalized weakness Psychiatric: normal affect, A&O x 3 Hosp A/P (1) CAD (coronary artery disease) Code(s): I25.10 - ATHSCL HEART DISEASE OF [place] CORONARY ARTERY W/O ANG PCTRS Status: Acute (2) Angina pectoris, unstable Status: Acute (3) HTN (hypertension) Code(s): I10 - ESSENTIAL (PRIMARY) HYPERTENSION Status: Acute (4) HLD (hyperlipidemia) Code(s): E78.5 - HYPERLIPIDEMIA, UNSPECIFIED Status: Acute (5) Atrial fibrillation Code(s): I48.91 - UNSPECIFIED ATRIAL FIBRILLATION Status: Chronic - Plan Plan: medical unit with telemetry cardiology consultation, recommendations appreciated heart cath tomorrow hold Eliquis in anticipation for heart cath atrial fibrillation, chronically on Eliquis therapy history of coronary disease with stent placement in the past morphine, oxygen, nitrates, aspirin continue home medications as able DVT prophylaxis
[2019-01-16] MEDS: Aspirin Chewable 81 MG TAB PO SCH (20:52)
[2019-01-17] MEDS: predniSONE 20 MG TAB PO SCH (04:58)
[2019-01-17] MEDS: Carvedilol 25 MG TAB PO SCH (04:58)
[2019-01-17] MEDS: Amlodipine 5 MG TAB PO SCH (04:58)
[2019-01-17] MEDS: Senokot S 8.6-50 MG TAB PO SCH (04:58)
[2019-01-17] MEDS ORDERED: Diazepam 5 MG TAB PO SCH (06:00)
[2019-01-17] MEDS ORDERED: Sodium Chloride 0.9% 1,000 ML IV SCH (06:00)
[2019-01-17] MEDS ORDERED: Heparin (Artline) 1,000 ML ONE (06:37)
[2019-01-17] MEDS: Morphine 2 MG/ML SYRINGE SLOW IVP PRN (07:23)
[2019-01-17] MEDS ORDERED: Fentanyl 100 MCG/2 ML VIAL ONE (07:36)
[2019-01-17] MEDS ORDERED: Midazolam HCl 2 mg/2 ml Vial ONE ×2 (07:36→09:07)
[2019-01-17] MEDS ORDERED: Nitroglycerin 100MG/250ML BOT 250 ML ONE (07:57)
[2019-01-17] MEDS ORDERED: Metoprolol Tartrate 5 MG/5 ML VIAL ONE (08:39)
[2019-01-17] MEDS ORDERED: Albumin 5% 500 ML ONE (08:55)
[2019-01-17] MEDS ORDERED: Fentanyl 250 MCG/5 ML VIAL ONE (09:07)
[2019-01-17] MEDS ORDERED: Dexmedetomidine 200 MCG/2 ML VIAL ONE (09:07)
[2019-01-17] MEDS ORDERED: Phenylephrine HCL 10 MG/ML VIAL ONE (09:07)
[2019-01-17] MEDS ORDERED: Insulin Regular 300 UNITS/3 ML VIAL ONE (09:07)
[2019-01-17] MEDS ORDERED: Heparin 10,000 UNITS/1 ML VIAL 30,000 UNITS in Sodium Chloride 0.9% 1,000 ML FS SCH (09:15)
--- NOTE | 2019-01-17 09:18 | CON ---
DATE OF CONSULTATION: HISTORY OF PRESENT ILLNESS: Referred for coronary artery bypass grafting. The patient was admitted late last week with multiple episodes of chest pain. He had previous stenting of his LAD. This occurred in 2007 and then he required repeat stenting in 2012. He has also had a pacemaker insertion for chronic atrial fibrillation. He underwent cardiac catheterization today showing disease just above an LAD diagonal bifurcation. He has significant disease that is stable and a small high diagonal, mild disease in a single obtuse marginal, and critical disease at the PDA, posterolateral bifurcation, most severe in the PDA origin. LABORATORY VALUES: Include negative troponins. Creatinine of 1.3 and hemoglobin is normal. Chest x-ray shows no mediastinal widening or prominent aorta. HOME MEDICATIONS: Include: 1. Eliquis, which was held last week and switched to Lovenox over the weekend. 2. Zantac. 3. Coreg 25 b.i.d. 4. Aspirin 325 a day. 5. Norvasc 2.5 a day. ALLERGIES: HE REPORTS ALLERGIES TO STATIN INTOLERANCE WELL POSSIBLE IODINE ALLERGY THAT CAUSED GOUT, PROBABLY DOES NOT REPRESENT A TRUE ALLERGY. PAST MEDICAL HISTORY: Also includes macular degeneration. PHYSICAL EXAMINATION: GENERAL: Elderly gentleman, in no distress. NECK: No carotid bruits. LUNGS: Clear to auscultation. CARDIAC: Regular rhythm. No murmurs. ABDOMEN: Obese, soft, and nontender. EXTREMITIES: No current edema, although he does report edema in the past. He has palpable posterior tibial pulses. PLAN: Plan at this time is bypass grafting to the LAD, PDA, and posterolateral as well as ligation of the left atrial appendage and informed consent has been obtained. Job ID: [id number]
[2019-01-17] MEDS: Nitroglycerin 2% Ointment 1 INCH/1 GM Packet TOP SCH (09:33)
[2019-01-17] MEDS ORDERED: Calcium Chloride 1 GM/10 ML Abboject SYRINGE ONE (09:37)
[2019-01-17] MEDS ORDERED: Rocuronium Bromide 10 MG/ML (10ML VIAL) ONE (09:37)
[2019-01-17] MEDS ORDERED: PHENYLEPHRINE-NS 100 MCG/ML 10 ML SYRINGE ONE (09:37)
[2019-01-17] MEDS ORDERED: PROPOFOL 200 MG/20 ML VIAL ONE (09:37)
[2019-01-17] MEDS ORDERED: Heparin 30,000 units/30 ml VIAL ONE (09:37)
[2019-01-17] MEDS ORDERED: Potassium Chloride 60 MEQ/30 ML VIAL ONE (09:37)
[2019-01-17] MEDS ORDERED: Magnesium Sulfate 1 GM/2 ML VIAL ONE (09:37)
[2019-01-17] MEDS ORDERED: Heparin 5,000 UNITS/ML VIAL ONE (09:37)
[2019-01-17] MEDS ORDERED: ePHEDrine/0.9% NaCl/PF SYRINGE 50 mg/10 ml ONE (09:37)
[2019-01-17] MEDS ORDERED: Lidocaine 1% PF 5 ML VIAL ONE (09:37)
[2019-01-17] MEDS ORDERED: Protamine Sulfate 250 MG/25 ML VIAL ONE (09:37)
[2019-01-17] MEDS ORDERED: Papaverine 60 MG/2 ML VIAL ONE (09:37)
[2019-01-17] MEDS ORDERED: Sodium Bicarb 50 MEQ/50 ML Abboject 8.4% SYRINGE ONE (09:37)
[2019-01-17] MEDS ORDERED: Aminocaproic Acid 5 GM/20 ML VIAL ONE (09:37)
[2019-01-17] MEDS ORDERED: Thrombin 5000 UNITS/5 ML VIAL ONE (09:37)
[2019-01-17] MEDS ORDERED: Vecuronium 10 MG VIAL ONE (09:37)
[2019-01-17] MEDS ORDERED: Cardioplegic Soln 1,000 ML BAG ONE (09:37)
[2019-01-17] MEDS ORDERED: Iopamidol 370 76% 100 ML VIAL ONE (11:11)
[2019-01-17] MEDS ORDERED: Acetaminophen 325 MG TAB PO PRN (13:34)
[2019-01-17] MEDS ORDERED: DOPamine 400 MG/D5W 250 ML 250 ML IVPB PRN (13:34)
[2019-01-17] MEDS ORDERED: Potassium Chloride 20 MEQ/100 ML PREMIX BAG IVPB PRN (13:34)
[2019-01-17] MEDS ORDERED: Fentanyl 100 MCG/2 ML VIAL SLOW IVP PRN ×2 (13:34)
[2019-01-17] MEDS ORDERED: niCARdipine 25 MG in Sodium Chloride 0.9% 250 ML 240 ML IVPB PRN (13:34)
[2019-01-17] MEDS ORDERED: HYDROcodone/Acetaminophen 5/325 mg Tablet PO PRN ×2 (13:34)
[2019-01-17] MEDS ORDERED: Morphine 2 MG/ML SYRINGE SLOW IVP PRN (13:34)
[2019-01-17] MEDS ORDERED: Mag-Al 1200 mg/1200 mg/30 ML UDCUP PO PRN (13:34)
[2019-01-17] MEDS ORDERED: Nitroglycerin 50 MG/250 ML BOT 250 ML IVPB PRN (13:34)
[2019-01-17] MEDS ORDERED: Ondansetron PF 4 MG/2 ML Vial IVP PRN (13:34)
[2019-01-17] MEDS ORDERED: Bisacodyl 5 MG TAB PO PRN (13:34)
[2019-01-17] MEDS ORDERED: Guaifenesin DM 100-10/5 ML UDCUP PO PRN (13:34)
[2019-01-17] MEDS ORDERED: hydrALAZINE 20 MG/ML VIAL SLOW IVP PRN (13:34)
[2019-01-17] MEDS ORDERED: Hetastarch 6% 500 ML 500 ML IVPB PRN (13:34)
[2019-01-17] MEDS ORDERED: Promethazine HCl 25 MG/ML VIAL IM PRN (13:34)
[2019-01-17] MEDS ORDERED: Norepinephrine 8 MG/0.9% NS 250 ML IVPB PRN (13:34)
[2019-01-17] MEDS ORDERED: Bisacodyl 10 MG SUPP PR PRN (13:34)
[2019-01-17] MEDS ORDERED: Post-Op Insulin Drip Protocol IVPB ONE (13:34)
[2019-01-17] MEDS ORDERED: HUMULIN R 100 UNITS in Sodium Chloride 0.9% 100 ML IVPB SCH (13:41)
[2019-01-17] MEDS ORDERED: Dextrose 50% Abboject 50 ML SYRINGE SLOW IVP PRN (13:41)
[2019-01-17] MEDS ORDERED: Dextrose 5% in Water 1,000 ML IV PRN (13:41)
[2019-01-17] MEDS ORDERED: Magnesium 2 GM/50 ML 2 GM in Premix Bag 1 BAG IVPB SCH (13:45)
--- NOTE | 2019-01-17 14:02 | OP ---
DATE OF PROCEDURE: 01/17/2019 PREOPERATIVE DIAGNOSIS: Unstable angina. PROCEDURES PERFORMED: 1. Left atrial appendage ligation. 2. Coronary artery bypass graft x3 with good quality left internal mammary artery to a 1.5 to 2 mm left anterior descending, good quality saphenous vein to a 1.5 to 2 mm right posterior lateral just after the takeoff of the posterior descending artery, and a smaller saphenous vein to a 1.5 to 2 mm posterior descending artery. [employer] OFFICER: Jeffrey Hamilton MD. TRANSFUSION: None. DESCRIPTION OF PROCEDURE: After adequate anesthesia had been obtained, the patient was prepped and draped. Saphenous vein was harvested in the left thigh and proximal calf for an endovascular vein harvest technique. This was performed by Dr. Hamilton while I performed a median sternotomy and harvested the left internal mammary artery. Prior to completing that, the patient was heparinized. The mammary was divided distally and passed anterior to the thymus gland through a hole in the pericardium. The aorta was somewhat generous in size and was cannulated as was the right atrium, taking care to avoid the atrial lead. Cardiopulmonary bypass was begun after an adequate ACT level had been obtained. Following this, the patient's vessels were inspected for grafting. The PDA came off the main right coronary artery just at the acute margin of the heart. The aorta was crossclamped, and after a liter of cold blood cardioplegia was given, the anastomosis to the PL, PDA, and LAD were completed after a double layer of 4-0 Prolene suture was used to ligate the left atrial appendage. Following completion of this, partial occluding clamp placed and the larger vein graft that went to the PL was anastomosed to the aortic root, marked with a ring into the germain of this. The PDA vein graft was placed. The patient was then weaned from cardiopulmonary bypass. Cannula was removed and protamine was given systemically. After this had been completed, the cannulation sites were checked for hemostasis as were the distal anastomosis. Mediastinal drains x2 were placed, following which the sternum was reapproximated with #7 interrupted wire using vancomycin paste on the sternal edges, platelet-rich blood and platelet-poor plasma on the subcutaneous tissue and skin. The patient is to be taken to the ICU in guarded condition. Job ID: [id number]
[2019-01-17 14:06] LABS: Actual Bicarbonate (HCO3a) 19.2 mEq/L (22-28); Base Excess (BEa) -5.5 mEq/L (-2.0 to +3.0); CO2 Tension 35.3 mmHg (35.0-45.0); Calcium, Ionized 1.14 mmol/L (1.12-1.30); Carboxyhemoglobin (COHb) 1.6 gm% (0.0-3.0); Hemoglobin (Hb) 13.7 g/dL (14.0-18.0); O2 Tension (PaO2) 65.6 mmHg (> 60.0); Potassium - ABG Lab 4.53 mmol/L (3.70-5.30); pH, Arterial 7.35 (7.35-7.45)
[2019-01-17 14:07] LABS: ALV-art Gradient 175.475 (0-20); Puncture Site ALINE
[2019-01-17] MEDS: Insulin Regular 300 UNITS/3 ML VIAL SC PRN (14:15)
[2019-01-17] MEDS: Lactated Ringer's 1,000 ML IV SCH (14:17)
[2019-01-17] MEDS: CEFAZOLIN 2 GM in Premix Bag 1 BAG IVPB SCH ×2 (14:18→21:08)
[2019-01-17 14:30] LABS: INR-International Normal Ratio 1.5; PTT 31.3 SEC (22.9-36.1); Prothrombin Time 17.8 SEC (12.0-14.7)
[2019-01-17 14:40] LABS: Anion Gap 10 mmol/L (10-20); BUN (Urea Nitrogen) 17 mg/dL (8.4-25.7); Calc. Creatinine Clearance 85 mL/min (70-130); Carbon Dioxide 24 mmol/L (23-31); Chloride 108 mmol/L (98-107); Estimated GFR-MDRD 65; Glucose 149 mg/dL (83-110); Potassium 4.6 mmol/L (3.5-5.1); Sodium 137 mmol/L (136-145)
[2019-01-17 14:41] LABS: Band 21 % (5-11); Hemoglobin 13.2 g/dL (14.0-18.0); Lymphocytes 4 % (21-51); MDiff Complete? YES; Mean Corpuscular HGB CONC 32.2 g/dL (32.0-36.0); Mean Corpuscular Hemoglobin 31.6 pg (27.0-31.0); Mean Corpuscular Volume 98.1 fL (78.0-98.0); Mean Platelet Volume 8.1 fL (7.4-10.4); Monocytes 5 % (0-10); Neutrophil 70 % (42-75); Ovalocytes SLIGHT = 2-5 cells (100X) (0-1/hpf); Platelet Count 150 thou/uL (130-400); Platelet Morphology Comment Appears Adequate; Polychromasia SLIGHT = 2-3 cells (100X) (0-2/hpf); RBC Distribution Width 13.8 % (11.5-14.5); Red Blood Cell (RBC) Count 4.19 mill/uL (4.70-6.10); Tear Drops SLIGHT = 2-5 cells (100X) (0-1/hpf); White Blood Cell (WBC) Count 29.2 thou/uL (4.8-10.8)
[2019-01-17 14:45] LABS: Base Excess (BEa) -3.5 mEq/L (-2.0 to +3.0); CO2 Tension 36.1 mmHg (35.0-45.0); Calcium, Ionized 1.13 mmol/L (1.12-1.30); Carboxyhemoglobin (COHb) 1.4 gm% (0.0-3.0); Hemoglobin (Hb) 13.8 g/dL (14.0-18.0); O2 Tension (PaO2) 61.7 mmHg (> 60.0); Potassium - ABG Lab 4.32 mmol/L (3.70-5.30); pH, Arterial 7.38 (7.35-7.45)
[2019-01-17 14:46] LABS: Puncture Site ALINE
[2019-01-17 14:47] LABS: ALV-art Gradient 178.375 (0-20)
--- NOTE | 2019-01-17 15:30 | RAD ---
CHEST ONE VIEW PORTABLE: HISTORY: Postop open heart. FINDINGS: Right subclavian catheter, endotracheal tube and chest tubes are noted. Left ICD. Minimal cardiomegal y. Increased linear markings in the perihilar regions and left lower lobe, evidence for postoperative change. No significant pneumothorax. IMPRESSION: Evidence for some postoperative increased markings. No significant pneumothorax. Continued short-term followup. POS: TPC
[2019-01-17] MEDS: Ketorolac Tromethamine 30 MG/ML VIAL IVP SCH (15:46)
--- NOTE | 2019-01-17 17:39 | PDOC.HOSPP ---
- Subjective Encounter Date: 01/17/19 Encounter Time: 16:30 Subjective: post op cabg, has been extubated, is oriented and moves all extremities is on high flow oxygen conversing well with and daughter - Objective Vital Signs & Weight: Vital Signs (12 hours) Temp Pulse Resp BP Pulse Ox 01/17/19 15:00 93 L 01/17/19 14:03 74 01/17/19 14:00 96.9 F L 15 83 L 01/17/19 13:48 70 01/17/19 07:05 98.2 F 75 16 148/75 H 92 L Weight Weight 258 lb Most Recent Monitor Data Heart Rate from ECG 70 NIBP 92/62 NIBP BP-Mean 72 Respiration from ECG 22 SpO2 99 I&O: 01/16/19 01/17/19 01/18/19 06:59 06:59 06:59 Intake Total 450 960 369 Output Total 420 Balance 450 960 -51 Result Diagrams: 01/17/19 13:21 01/17/19 13:21 Additional Labs: Accuchecks 01/17/19 01/17/19 01/17/19 16:16 14:06 13:01 POC Glucose 154 H 134 H 151 H 01/17/19 01/17/19 01/17/19 12:27 11:56 11:10 POC Glucose 161 H 160 H 138 H 01/17/19 10:05 POC Glucose 134 H Hospitalist ROS - Medication Medications: Active Medications Generic Name Dose Route Start Last Admin Trade Name Freq PRN Reason Stop Dose Admin Cefazolin Sodium/Dextrose 2 gm 50 mls @ 100 mls/hr 01/17/19 14:00 01/17/19 14 :18 / Device IVPB 01/18/19 06:29 50 mls Q8HR JOSE Administration Lactated Ringer's 1,000 mls @ 75 mls/hr 01/17/19 13:34 01/17/19 14:17 Lactated Ringer's IV 1,000 mls .[id number] JOSE Administration Insulin Human Regular 100 101 mls @ 0 mls/hr 01/17/19 13:41 01/17/19 17:34 units/ Sodium Chloride IVPB 101 mls INF JOSE Administration Protocol As Directed Insulin Human Regular 0 units 01/17/19 13:41 01/17/19 14:15 Humulin R SC 2 unit Q4H PRN Administration POST OP SLIDING SCALE Protocol Ketorolac Tromethamine 15 mg 01/17/19 18:00 01/17/19 15:46 Toradol IVP 01/20/19 18:01 15 mg Q6HR JOSE Administration - Exam General Appearance: awake alert Eye: PERRL, anicteric sclera ENT: no oropharyngeal lesions, dry oral mucosa Neck: supple, no JVD Heart: RRR, no murmur Respiratory: no wheezes, no rales, rhonchi Respiratory - other findings: chest tubes+ Gastrointestinal: soft, non-tender, non-distended, normal bowel sounds Extremities: no cyanosis, no edema Neurological: cranial nerve grossly intact, no focal deficits Psychiatric: A&O x 3 Hosp A/P (1) S/P CABG x 3 Code(s): Z95.1 - PRESENCE OF AORTOCORONARY BYPASS GRAFT Status: Acute (2) CAD (coronary artery disease) Code(s): I25.10 - ATHSCL HEART DISEASE OF [place] CORONARY ARTERY W/O ANG PCTRS Status: Acute Qualifiers: Coronary Disease-Associated Artery/Lesion type: bypass graft [place] vs. transplanted heart: [place] heart (3) HLD (hyperlipidemia) Code(s): E78.5 - HYPERLIPIDEMIA, UNSPECIFIED Status: Chronic Qualifiers: Hyperlipidemia type: unspecified Qualified Code(s): E78.5 - Hyperlipidemia , unspecified (4) HTN (hypertension) Code(s): I10 - ESSENTIAL (PRIMARY) HYPERTENSION Status: Chronic Qualifiers: Hypertension type: essential hypertension Qualified Code(s): I10 - Essential (primary) hypertension (5) Atrial fibrillation Code(s): I48.91 - UNSPECIFIED ATRIAL FIBRILLATION Status: Chronic - Plan is s/p cabg for 3 vessel disease, had cath this am recovering well post cabg, is awake and oriented well continue asp, fentanyl prn, insulin drip hemostable will f/u
[2019-01-17 19:09] LABS: A/G Ratio 1.2 (0.7-1.7); Albumin 3.2 g/dL (2.9-4.4); Alpha 1 0.2 g/dL (0.0-0.4); Alpha 2 0.5 g/dL (0.4-1.0); Gamma 0.9 g/dL (0.4-1.8); Globulin, Total 2.6 g/dL (2.2-3.9); M-Spike Not Observed g/dL (Not Observed)
[2019-01-17 19:37] LABS: Hemoglobin 12.9 g/dL (14.0-18.0)
[2019-01-17 19:52] LABS: Potassium 4.3 mmol/L (3.5-5.1)
[2019-01-17] MEDS: Famotidine/PF 20 mg/2ml Vial SLOW IVP SCH (20:51)
[2019-01-18] MEDS: Ketorolac Tromethamine 30 MG/ML VIAL IVP SCH ×2 (00:07→06:13)
[2019-01-18] MEDS: Lactated Ringer's 1,000 ML IV SCH ×2 (03:02→16:22)
[2019-01-18 05:14] LABS: #Lymphocytes 1.3 thou/uL (1.20-3.40); #Monocytes 2.1 thou/uL (0.11-0.59); #Neutrophils 13.6 thou/uL (1.40-6.50); %Eosinophils 0.1 % (0.0-10.0); %Lymphocytes 7.8 % (21.0-51.0); %Monocytes 12.3 % (0.0-10.0); %Neutrophils 79.8 % (42.0-75.0); Hemoglobin 12.1 g/dL (14.0-18.0); Mean Corpuscular HGB CONC 33.2 g/dL (32.0-36.0); Mean Corpuscular Hemoglobin 32.6 pg (27.0-31.0); Mean Corpuscular Volume 98.4 fL (78.0-98.0); Mean Platelet Volume 8.6 fL (7.4-10.4); Platelet Count 153 thou/uL (130-400); RBC Distribution Width 14.2 % (11.5-14.5)
[2019-01-18 05:24] LABS: Anion Gap 12 mmol/L (10-20); BUN (Urea Nitrogen) 27 mg/dL (8.4-25.7); Calc. Creatinine Clearance 54 mL/min (70-130); Calcium 8.2 mg/dL (7.8-10.44); Carbon Dioxide 27 mmol/L (23-31); Chloride 106 mmol/L (98-107); Estimated GFR-MDRD 38; Glucose 120 mg/dL (83-110); Potassium 4.5 mmol/L (3.5-5.1); Sodium 140 mmol/L (136-145)
[2019-01-18] MEDS: CEFAZOLIN 2 GM in Premix Bag 1 BAG IVPB SCH (06:14)
--- NOTE | 2019-01-18 07:50 | RAD ---
Chest AP view INDICATION: Status post open-heart surgery COMPARISON: January 17, 2019 FINDINGS: Lungs:There is an area of new subsegmental atelectasis within the right mid lung. Mild left basilar a telectasis persists. Cardiac silhouette:Mild cardiomegaly is stable. Midline sternotomy wires are unchanged. Dual-lead pac emaker is stable. Pulmonary vasculature:Mild pulmonary vascular congestion persists Pleural spaces:Tiny pleural effusions, left greater than right persists. Upper abdomen:No abnormality seen. Osseous structures: No acute osseous abnormality. Additional findings:The patient has been intervally extubated. Right subclavian central venous cathet er is stable. Midline mediastinal drain is stable. No pneumothorax. IMPRESSION: Interval extubation. Persistent left basilar and new right midlung atelectasis. Persisten t mild cardiomegaly with mild pulmonary vascular congestion. Small bilateral pleural effusions. Continued follow-up is recommended.
--- NOTE | 2019-01-18 09:24 | PRG ---
DATE OF SERVICE: 01/18/2019 SUBJECTIVE: Mr. Hampton is doing well postoperatively, sitting up in the chair. No complaints. Blood pressure is being maintained in the sitting position. Pulse is in atrial fibrillation, which is chronic with a controlled rate. OBJECTIVE: VITAL SIGNS: Blood pressure 103/54. LUNGS: Clear. CARDIAC: Irregular. ABDOMEN: Soft, nontender. EXTREMITIES: No edema. ASSESSMENT: 1. Status post bypass surgery, doing well. 2. Atrial fibrillation, chronic, rate controlled. PLAN: 1. Continue current medical regimen. 2. Start low-dose anticoagulation in a few days. Job ID: [id number]
[2019-01-18] MEDS: Famotidine/PF 20 mg/2ml Vial SLOW IVP SCH ×2 (09:29→20:03)
[2019-01-18] MEDS: Aspirin 325 MG TAB PO SCH (09:29)
--- NOTE | 2019-01-18 14:13 | EKG ---
Test Reason : POST CABG Blood Pressure : / mmHG Vent. Rate : 072 BPM Atrial Rate : 072 BPM P-R Int : 182 ms QRS Dur : 082 ms QT Int : 414 ms P-R-T Axes : 061 003 075 degrees QTc Int : 453 ms Sinus rhythm with Premature atrial complexes Otherwise normal ECG When compared with ECG of 13-JAN-2019 21:39, (Unconfirmed) Sinus rhythm has replaced Electronic ventricular pacemaker Confirmed by MARBIN HORNER, SGil ([id number]) on 01/18/2019 2:12:44 PM Referred By: YESI Confirmed By:DR. Francisco ZAZUETA MD
--- NOTE | 2019-01-18 18:55 | CON ---
DATE OF CONSULTATION: 01/18/2019 SERVICE: Pulmonary Medicine. REASON FOR CONSULTATION: ICU patient. HISTORY OF PRESENT ILLNESS: The patient is an 84-year-old white male, who presented to the emergency department on December,, with complaints of chest discomfort. Ultimately, during the course of the hospital stay, he was discovered to have coronary artery disease with flow limiting lesion accounting for the patient's presentation. He was cooled off with some heparin. After this, he went for a coronary artery bypass graft. Intraoperatively, an appendage ligation was performed. He is currently postop day #1. He is breathing comfortably. Denies any shortness of breath or chest discomfort presently. He has no complaints of fevers, chills, nausea, or vomiting. Otherwise, he is doing as well as we could hope for in the immediate postop setting. PAST MEDICAL HISTORY: 1. Coronary artery disease. 2. Atrial fibrillation. 3. Macular degeneration. PAST SURGICAL HISTORY: 1. Percutaneous coronary intervention x3 with stent placement. 2. Pacemaker placement. 3. Hand surgery. 4. Herniorrhaphy. 5. Facial surgery for nose reconstruction. 6. Cholecystectomy. 7. Tonsillectomy and adenoidectomy. 8. Coronary artery bypass graft x3 vessels plus intraoperative appendage ligation. FAMILY HISTORY: Noncontributory. SOCIAL HISTORY: He drinks occasionally. Denies any alcohol or significant drug use. He quit smoking over 10 years ago, but prior to that, he had a greater than 40 pack-year history of smoking. ALLERGIES: SHELLFISH AND STATINS. MEDICATIONS: List of his inpatient medications was reviewed. No specific updates were made at this time. REVIEW OF SYSTEMS: General; head, ears, eyes, nose, throat; cardiovascular; respiratory; GI; ; musculoskeletal; neurologic; and skin are negative except as mentioned in the HPI. PHYSICAL EXAMINATION: VITAL SIGNS: Afebrile, pulse 77, blood pressure 132/77, respirations 18, and saturation 100% currently on 2 L nasal cannula. GENERAL: The patient is awake and alert, in no apparent distress. LUNGS: Reduced air entry. There is a prolonged expiratory phase. I do not appreciate any wheezing, but dependent crackles are noted. No rhonchi. HEART: Normal rate. Irregular. ABDOMEN: Soft, nontender, and nondistended. Bowel sounds are positive. MUSCULOSKELETAL: No cyanosis or clubbing. There is 1 to 2+ pitting in the right lower extremity. Left lower extremity is wrapped. NEUROLOGIC: Grossly nonfocal. LABORATORY DATA: WBC 17.0 and downtrending, hemoglobin 12.1, and platelets 153, 000. INR 1.5. A pH 7.38, pCO2 of 36, pO2 of 62. Creatinine 1.73 and gently uptrending. BUN 27. Basic metabolic profile is otherwise unremarkable. Albumin 3.2 and total protein 5.8. IMAGING: Chest x-ray demonstrates volume loss of the left base. Right mid lung zone atelectasis is present. Mediastinal drain and chest tube are in place. There is likely left pleural parenchymal disease and possible effusion on that side. The right side appears clear. ASSESSMENT: 1. Acute hypoxic respiratory failure. 2. Atelectasis of the right mid lung zone. 3. Coronary artery disease, status post coronary artery bypass graft, postop day #1. 4. Extensive smoking history without a diagnosis of chronic obstructive pulmonary disease. 5. Atrial fibrillation, status post left atrial appendage ligation. DISCUSSION AND PLAN: The patient is doing fine from a respiratory standpoint. We will continue our mobilization efforts. We will provide him with an incentive spirometer. I gave him instructions on how to use this thing. We are going to focus on good mobilization. Most likely, his atelectasis will resolve on its own without any additional intervention once the chest tubes can be removed. Pulmonary/Critical Care will continue to follow in this location. 70 minutes have been devoted to this patient in various activities. I personally reviewed all imaging studies and laboratory data noted within this document. For fifty percent of this time, I was interacting with the patient at the bedside or coordinating care with the care team. For the remainder of the time I was immediately available to the patient in the hospital unit. Job ID: [id number] [facility]
--- NOTE | 2019-01-18 19:13 | PQF ---
CAL OLMEDO VINAYA KUMAR MD [id number] CLINICAL DOCUMENTATION IMPROVEMENT CLARIFICATION FORM: ICD-10 Updated PLEASE DO AN ADDENDUM TO THE PROGRESS NOTE WITH ANY DOCUMENTATION UPDATES OR ADDITIONS AND CARRY THROUGH TO DC SUMMARY. THANK YOU. DATE: 01/18/19 ATTN: Dr Arreaga Please exercise your independent, professional judgment in responding to the clarification form. Clinical indicators are provided on the bottom of this form for your review Please check appropriate box(s): [ x ] Acute Renal Failure (ARF) / Acute Kidney Injury (RHETT) [ ] Other Etiology or underlying conditions related to the diagnosis of ARF/ RHETT: [ ] Acute Interstitial Nephritis (AIN) [ ] Other: [ ] Acute on Chronic Renal Failure [ ] Other diagnosis [ ] Unable to determine In addition, please specify: Present on Admission (POA): [ x ] Yes [ ] No [ ] Unable to determine National Kidney Foundation Guidelines for CKD Staging Stage I Kidney damage with normal or increased GFRGFR > 90 Stage IIKidney damage with mildly decreased GFRGFR 60-89 Stage III Kidney damage with moderately decreased GFRGFR 30-59 Stage IVKidney damage with severely decreased GFRGFR 16-29 Stage VKidney failureGFR<15 ESRDEnd Stage Renal DiseaseOn dialysis Acute Renal Failure/Acute Kidney Failure defined as: Increases in SCr by (>) 0.3 mg/dl within 48 hours OR- Increases in SCr by (>) 1.5 times baseline, known or presumed to have occurred within the prior 7 days OR- Urine volume < 0.5 ml/kg/hour for 6 hours (KDIGO supplement 2012 for RIFLE/CLAYTON criteria) For continuity of documentation, please document condition throughout progress notes and discharge summary. Thank You. CLINICAL INDICATORS - SIGNS / SYMPTOMS / LABS / RESULTS AND LOCATION IN MR 01/18 PER LAB CREATININE 1.73, GFR - 38 Hypotension- 01/18 [id number] SBP 80'S-90S RISK FACTORS / RESULTS AND LOCATION IN MR SAP Thermal Cutter Helper Crystal Reports Winform Viewer Surgery - 01/18 CABG PER PROGRESS NOTE Nephrotoxins (drugs and contrast)- 01/17 PROGRESS NOT E- HEART CATH TREATMENTS / RESULTS AND LOCATION IN MR Monitor I&O - 01/18 per orders hourly BMP - 01/18, 01/19 per orders (This form is maintained as a part of the permanent medical record) 2014 [employer], [employer]. All Rights Reserved [email or web address] [not provided] MTDD
[2019-01-18] MEDS: Insulin Regular 300 UNITS/3 ML VIAL SC PRN (20:17)
--- NOTE | 2019-01-18 21:47 | PDOC.HOSPP ---
- Subjective Encounter Date: 01/18/19 Encounter Time: 11:00 Subjective: is sitting in chair, some nausea this am while drinking water no sob, interacts well - Objective Vital Signs & Weight: Vital Signs (12 hours) Temp 01/18/19 19:00 98.6 F 01/18/19 15:00 98.5 F Weight Weight 4.222 oz Most Recent Monitor Data Heart Rate from ECG 85 NIBP 123/74 NIBP BP-Mean 90 Respiration from ECG 21 SpO2 97 I&O: 01/17/19 01/18/19 01/19/19 06:59 06:59 06:59 Intake Total 960 1559.1 1478 Output Total 1170 745 Balance 960 389.1 733 Result Diagrams: 01/18/19 04:40 01/18/19 04:40 Additional Labs: Accuchecks 01/18/19 01/18/19 01/18/19 20:17 17:04 12:03 POC Glucose 125 H 128 H 115 H 01/18/19 01/18/19 01/18/19 06:23 05:21 04:10 POC Glucose 113 H 105 104 01/18/19 01/18/19 01/18/19 03:06 02:06 01:11 POC Glucose 121 H 129 H 118 H 01/18/19 01/17/19 01/17/19 00:09 23:19 22:08 POC Glucose 119 H 100 114 H 01/17/19 21:07 POC Glucose 127 H Hospitalist ROS - Medication Medications: Active Medications Generic Name Dose Route Start Last Admin Trade Name Freq PRN Reason Stop Dose Admin Hydrocodone Bitart/Acetaminophen 1 tab 01/17/19 13:34 01/18/19 20:03 [place] 5/325 PO 1 tab Q4H PRN Administration Moderate Pain (4-6) Aspirin 325 mg 01/18/19 09:00 01/18/19 09:29 Aspirin PO 325 mg DAILY JOSE Administration Famotidine 20 mg 01/17/19 21:00 01/18/19 20:03 Pepcid SLOW IVP 20 mg Q12HR JOSE Administration Fentanyl 50 mcg 01/17/19 13:34 01/17/19 19:30 Sublimaze SLOW IVP 01/19/19 13:21 50 mcg Q2H PRN Administration Severe Pain (7-10) Lactated Ringer's 1,000 mls @ 75 mls/hr 01/17/19 13:34 01/18/19 16:22 Lactated Ringer's IV 1,000 mls .[id number] JOSE Administration Insulin Human Regular 100 101 mls @ 0 mls/hr 01/17/19 13:41 01/17/19 17:34 units/ Sodium Chloride IVPB 101 mls INF JOSE Administration Protocol As Directed Insulin Human Regular 0 units 01/17/19 13:41 01/18/19 20:17 Humulin R SC 2 unit Q4H PRN Administration POST OP SLIDING SCALE Protocol Ondansetron HCl 4 mg 01/17/19 13:34 01/17/19 20:52 Zofran IVP 4 mg Q6H PRN Administration Nausea/Vomiting - Exam General Appearance: awake alert Eye: PERRL, anicteric sclera ENT: no oropharyngeal lesions, dry oral mucosa Neck: supple, no JVD Heart: RRR, no murmur Respiratory: no wheezes, no rales Respiratory - other findings: chest tubes Gastrointestinal: soft, non-tender, non-distended, normal bowel sounds Extremities: no cyanosis, no edema Neurological: cranial nerve grossly intact, no focal deficits Psychiatric: A&O x 3 Hosp A/P (1) S/P CABG x 3 Code(s): Z95.1 - PRESENCE OF AORTOCORONARY BYPASS GRAFT Status: Acute (2) CAD (coronary artery disease) Code(s): I25.10 - ATHSCL HEART DISEASE OF [place] CORONARY ARTERY W/O ANG PCTRS Status: Acute Qualifiers: Coronary Disease-Associated Artery/Lesion type: bypass graft [place] vs. transplanted heart: [place] heart (3) HLD (hyperlipidemia) Code(s): E78.5 - HYPERLIPIDEMIA, UNSPECIFIED Status: Chronic Qualifiers: Hyperlipidemia type: unspecified Qualified Code(s): E78.5 - Hyperlipidemia , unspecified (4) HTN (hypertension) Code(s): I10 - ESSENTIAL (PRIMARY) HYPERTENSION Status: Chronic Qualifiers: Hypertension type: essential hypertension Qualified Code(s): I10 - Essential (primary) hypertension (5) Atrial fibrillation Code(s): I48.91 - UNSPECIFIED ATRIAL FIBRILLATION Status: Chronic - Plan s/p cabg for 3 vessel disease, doing well continue asp, fentanyl prn, i.spirometry hold off on lasix, continue iv fluids, mild jed due to post op status and not eating/drinking much, also to keep a bit lean. had normal ef on cath around 60%, recieved around 100ml of isovue for cath, will watch trend of creatinine in am hemostable will f/u
[2019-01-19 04:50] LABS: #Eosinphils 0.1 thou/uL (0.0-0.7); #Lymphocytes 1.5 thou/uL (1.20-3.40); #Monocytes 2.3 thou/uL (0.11-0.59); #Neutrophils 12.7 thou/uL (1.40-6.50); %Basophils 0.1 % (0.0-1.0); %Eosinophils 0.3 % (0.0-10.0); %Lymphocytes 8.8 % (21.0-51.0); %Monocytes 13.9 % (0.0-10.0); %Neutrophils 76.9 % (42.0-75.0); Hemoglobin 10.5 g/dL (14.0-18.0); Mean Corpuscular HGB CONC 33.5 g/dL (32.0-36.0); Mean Corpuscular Hemoglobin 32.7 pg (27.0-31.0); Mean Corpuscular Volume 97.8 fL (78.0-98.0); Platelet Count 140 thou/uL (130-400); RBC Distribution Width 14.3 % (11.5-14.5); Red Blood Cell (RBC) Count 3.21 mill/uL (4.70-6.10); White Blood Cell (WBC) Count 16.5 thou/uL (4.8-10.8)
[2019-01-19 05:08] LABS: Anion Gap 9 mmol/L (10-20); BUN (Urea Nitrogen) 35 mg/dL (8.4-25.7); Calc. Creatinine Clearance 0 mL/min (70-130); Calcium 8.1 mg/dL (7.8-10.44); Carbon Dioxide 28 mmol/L (23-31); Chloride 104 mmol/L (98-107); Estimated GFR-MDRD 43; Glucose 129 mg/dL (83-110); Sodium 137 mmol/L (136-145)
[2019-01-19 05:35] VITALS: BMI 33.0
[2019-01-19] MEDS ORDERED: Furosemide 40 MG/4 ML VIAL SLOW IVP SCH (06:00)
--- NOTE | 2019-01-19 06:23 | PRG ---
DATE OF SERVICE: 01/19/2019 SERVICE: Pulmonary Medicine. INTERVAL HISTORY: The patient is doing okay from respiratory standpoint. He is breathing comfortably. He slept well last night. Denies any current chest discomfort. He is coughing intermittently, but not bringing up any phlegm. No significant overnight events occurred. PHYSICAL EXAMINATION: VITAL SIGNS: Afebrile, pulse 105, blood pressure 132/58, respirations 23, saturation 97%, currently on 3 L nasal cannula. GENERAL: The patient is awake and alert, in no apparent distress. LUNGS: Poor air entry with a prolonged expiratory phase. Crackles are present. No wheezing is appreciated. HEART: Normal rate. Regular. ABDOMEN: Soft, nontender and nondistended. Bowel sounds are positive. MUSCULOSKELETAL: No cyanosis or clubbing. 1+ pitting is present in bilateral lower extremities. NEUROLOGIC: Grossly nonfocal. LABORATORY DATA: WBC 16.5, hemoglobin 10.3, and platelets 140,000. Neutrophil count is downtrending. INR 1.5. Creatinine 1.56 and gently downtrending, BUN 35. Basic metabolic profile is otherwise unremarkable. IMAGING: Chest x-ray demonstrates right subclavian central venous catheter terminates in good position. Sternotomy wires are present. There is left pleural parenchymal disease. There is likely atelectasis in the right mid lung zone, in the left base. A mediastinal drain is in place and I believe a left basilar chest tube is also in place. Lung volumes remain small. ASSESSMENT: 1. Acute hypoxic respiratory failure. 2. Atelectasis of the right mid lung zone and likely left lower lobe. 3. Coronary artery disease, status post coronary artery bypass graft, postop day #2. 4. Extensive smoking history without a formal diagnosis of chronic obstructive pulmonary disease. 5. Atrial fibrillation, status post left atrial appendage ligation. DISCUSSION AND PLAN: The patient is doing okay from respiratory standpoint. Hopefully, chest tubes will be able to be pulled soon. At that point, our mobilization efforts, and pulmonary toileting will be a touch easier. We will continue our mobilization efforts. If the patient has an increase in sepsis profile, I would treat him for a left lower lobe possible infiltrate. That being said, under current circumstances, I favor atelectasis is there. Job ID: [id number]
[2019-01-19] MEDS ORDERED: Metoprolol Tartrate 5 MG/5 ML VIAL IVP SCH (08:00)
[2019-01-19] MEDS ORDERED: Ketorolac Tromethamine 30 MG/ML VIAL IVP SCH (08:00)
[2019-01-19] MEDS ORDERED: Digoxin 0.5 MG/2 ML AMP SLOW IVP SCH (08:00)
--- NOTE | 2019-01-19 08:46 | RAD ---
CHEST 1 VIEW: INDICATION: Open heart surgery. COMPARISON: Prior exam dated 01/18/2019. IMPRESSION: Examination has not appreciably changed from the comparison exam. There is persistent bibasilar atel ectasis. Cardiomegaly with mild pulmonary vascular congestion and tiny pleural effusions persist. M idline mediastinal drain and right subclavian central venous catheter are stable appearing. Dual-korey d pacemaker is unchanged. POS: BH
--- NOTE | 2019-01-19 08:47 | PRG ---
DATE OF SERVICE: 01/19/2019 SUBJECTIVE: Mr. Hampton feels more soreness today. No shortness of breath. OBJECTIVE: VITAL SIGNS: Blood pressure 140/90, pulse 110 to 120s, atrial fibrillation with a rapid rate. LUNGS: Clear. CARDIAC: Tachycardic and irregular. ABDOMEN: Soft and nontender. EXTREMITIES: No edema. DIAGNOSTIC STUDIES: EKG, there is some concave up ST-elevation compatible with pericardial inflammation. CONCLUSION: 1. Status post bypass surgery, multivessel coronary artery disease. 2. Chronic atrial fibrillation. 3. Status post left atrial appendage, over-sewing. 4. Some pericardial inflammation on EKG. PLAN: 1. Give another dose of Toradol. 2. Digoxin x1. 3. Intravenous metoprolol and then resume carvedilol. He was on 25 mg twice a day at home. We will start out with 6.25 twice a day here in the hospital. Job ID: [id number]
[2019-01-19] MEDS: Aspirin 325 MG TAB PO SCH (08:50)
[2019-01-19] MEDS: Carvedilol 6.25 MG TAB PO SCH ×2 (08:50→17:10)
[2019-01-19] MEDS: Famotidine/PF 20 mg/2ml Vial SLOW IVP SCH (08:50)
[2019-01-19] MEDS ORDERED: Bisacodyl 5 MG TAB PO PRN (09:08)
[2019-01-19] MEDS ORDERED: Acetaminophen 325 MG TAB PO PRN (09:08)
[2019-01-19] MEDS ORDERED: Nitroglycerin 0.4 MG TAB (25 Tab Bottle) SL PRN (09:08)
[2019-01-19] MEDS ORDERED: diphenhydrAMINE 25 MG CAP PO PRN (09:08)
[2019-01-19] MEDS ORDERED: Milk Of Magnesia 30 ML UDCUP PO PRN (09:08)
[2019-01-19] MEDS ORDERED: Guaifenesin DM 100-10/5 ML UDCUP PO PRN (09:08)
[2019-01-19] MEDS ORDERED: Mineral Oil ENEMA PR PRN (09:08)
[2019-01-19] MEDS ORDERED: Mag-Al 1200 mg/1200 mg/30 ML UDCUP PO PRN (09:08)
[2019-01-19] MEDS ORDERED: Bisacodyl 10 MG SUPP PR PRN (09:08)
[2019-01-19] MEDS: Aspirin 325 mg Enteric Coated Tablet PO SCH (10:03)
[2019-01-19] MEDS: Lactated Ringer's 1,000 ML IV SCH (10:04)
[2019-01-19] MEDS: Polyethylene Glycol 3350 17 GM Packet PO SCH (10:51)
[2019-01-19] MEDS: Tamsulosin HCl 0.4 MG CAP PO SCH (10:53)
[2019-01-19] MEDS: Ibuprofen 200 MG TAB PO SCH ×2 (10:53→17:10)
[2019-01-19] MEDS: Potassium Chloride 10 MEQ TAB PO SCH (10:53)
--- NOTE | 2019-01-19 13:09 | PDOC.HOSPP ---
- Subjective Encounter Date: 01/19/19 Encounter Time: 10:55 Subjective: is on telemetry this am no sob, feels better family at bedside - Objective Vital Signs & Weight: Vital Signs (12 hours) Temp Pulse Resp BP BP Pulse Ox 01/19/19 11:10 99 F 86 16 107/61 94 L 01/19/19 09:45 97.4 F L 101 H 20 120/63 93 L 01/19/19 08:50 142/82 H 01/19/19 08:49 74 01/19/19 08:00 97 01/19/19 07:00 98.6 F Weight Weight 270 lb 15.17 oz Most Recent Monitor Data Heart Rate from ECG 109 NIBP 123/79 NIBP BP-Mean 93 Respiration from ECG 24 SpO2 93 I&O: 01/18/19 01/19/19 01/20/19 06:59 06:59 06:59 Intake Total 1559.1 2881 295 Output Total 1170 1230 250 Balance 389.1 1651 45 Result Diagrams: 01/19/19 04:12 01/19/19 04:12 Additional Labs: Accuchecks 01/18/19 01/18/19 20:17 17:04 POC Glucose 125 H 128 H Hospitalist ROS - Medication Medications: Active Medications Generic Name Dose Route Start Last Admin Trade Name Kevin PRN Reason Stop Dose Admin Aspirin 325 mg 01/19/19 09:00 01/19/19 10:03 Ecotrin PO Not Given DAILY JOSE Carvedilol 6.25 mg 01/19/19 08:00 01/19/19 08:50 Coreg PO 6.25 mg BID-WM JOSE Administration Ibuprofen 400 mg 01/19/19 09:08 01/19/19 10:53 Motrin PO 400 mg Q8H JOSE Administration Polyethylene Glycol 17 gm 01/19/19 09:00 01/19/19 10:51 Miralax PO Not Given DAILY JOSE Potassium Chloride 10 meq 01/19/19 08:00 01/19/19 10:53 Klor-Con 10 PO 10 meq QAM-WM JOSE Administration Tamsulosin HCl 0.4 mg 01/19/19 09:00 01/19/19 10:53 Flomax PO 0.4 mg DAILY JOSE Administration - Exam General Appearance: awake alert Eye: PERRL, anicteric sclera ENT: no oropharyngeal lesions, moist mucosa Neck: supple, no JVD Heart: RRR, no murmur Respiratory: no wheezes, no rales Gastrointestinal: soft, non-tender, non-distended, normal bowel sounds Extremities: no cyanosis, no edema Neurological: cranial nerve grossly intact, no focal deficits Psychiatric: normal affect, A&O x 3 Hosp A/P (1) S/P CABG x 3 Code(s): Z95.1 - PRESENCE OF AORTOCORONARY BYPASS GRAFT Status: Acute (2) CAD (coronary artery disease) Code(s): I25.10 - ATHSCL HEART DISEASE OF [place] CORONARY ARTERY W/O ANG PCTRS Status: Acute Qualifiers: Coronary Disease-Associated Artery/Lesion type: bypass graft [place] vs. transplanted heart: [place] heart (3) HLD (hyperlipidemia) Code(s): E78.5 - HYPERLIPIDEMIA, UNSPECIFIED Status: Chronic Qualifiers: Hyperlipidemia type: unspecified Qualified Code(s): E78.5 - Hyperlipidemia , unspecified (4) HTN (hypertension) Code(s): I10 - ESSENTIAL (PRIMARY) HYPERTENSION Status: Chronic Qualifiers: Hypertension type: essential hypertension Qualified Code(s): I10 - Essential (primary) hypertension (5) Atrial fibrillation Code(s): I48.91 - UNSPECIFIED ATRIAL FIBRILLATION Status: Chronic - Plan s/p cabg for 3 vessel disease with left atrial appendage ligation, doing well continue asp, coreg, i.spirometry hold off on lasix, continue iv fluids, mild jed due to post op status and not eating/drinking much, also to keep a bit lean. had normal ef on cath around 60%, recieved around 100ml of isovue for cath, creatinine is trending down towards baseline. to mobilize with cardiac rehab hemostable d/w patient and family at bedside Likely might need swing bed to recuperate well and prevent readmission given his age.
[2019-01-19] MEDS: Famotidine 20 MG TAB PO SCH (20:21)
[2019-01-20] MEDS: Ibuprofen 200 MG TAB PO SCH ×3 (02:44→16:21)
[2019-01-20 05:26] LABS: Anion Gap 8 mmol/L (10-20); BUN (Urea Nitrogen) 37 mg/dL (8.4-25.7); Calc. Creatinine Clearance 71 mL/min (70-130); Calcium 8.2 mg/dL (7.8-10.44); Carbon Dioxide 31 mmol/L (23-31); Chloride 102 mmol/L (98-107); Estimated GFR-MDRD 49; Glucose 129 mg/dL (83-110); Potassium 3.6 mmol/L (3.5-5.1); Sodium 137 mmol/L (136-145)
[2019-01-20] MEDS: Potassium Chloride 10 MEQ TAB PO SCH (09:00)
[2019-01-20] MEDS: Aspirin 325 mg Enteric Coated Tablet PO SCH (09:00)
[2019-01-20] MEDS: Tamsulosin HCl 0.4 MG CAP PO SCH (09:00)
[2019-01-20] MEDS: Furosemide 40 MG TAB PO SCH (09:00)
[2019-01-20] MEDS: Carvedilol 6.25 MG TAB PO SCH ×2 (09:00→16:21)
[2019-01-20] MEDS: Famotidine 20 MG TAB PO SCH ×2 (09:00→19:26)
[2019-01-20] MEDS: Polyethylene Glycol 3350 17 GM Packet PO SCH (09:13)
--- NOTE | 2019-01-20 11:54 | PDOC.HOSPP ---
- Subjective Encounter Date: 01/20/19 Encounter Time: 10:30 Subjective: is eating breakfast, no sob, awake and watching tv - Objective Vital Signs & Weight: Vital Signs (12 hours) Temp Pulse Resp BP BP Pulse Ox 01/20/19 07:23 98.4 F 113 H 16 120/59 L 92 L 01/20/19 04:00 97.6 F 99 14 110/65 94 L 01/20/19 00:36 89 101/51 L Weight Weight 259 lb 12.8 oz Most Recent Monitor Data Heart Rate from ECG 109 NIBP 123/79 NIBP BP-Mean 93 Respiration from ECG 24 SpO2 93 I&O: 01/19/19 01/20/19 01/21/19 06:59 06:59 06:59 Intake Total 2881 945 Output Total 1230 250 Balance 1651 695 Result Diagrams: 01/19/19 04:12 01/20/19 04:24 Hospitalist ROS - Medication Medications: Active Medications Generic Name Dose Route Start Last Admin Trade Name Freq PRN Reason Stop Dose Admin Aspirin 325 mg 01/19/19 09:00 01/20/19 09:00 Ecotrin PO 325 mg DAILY JOSE Administration Carvedilol 6.25 mg 01/19/19 08:00 01/20/19 09:00 Coreg PO 6.25 mg BID-WM JOSE Administration Famotidine 20 mg 01/19/19 21:00 01/20/19 09:00 Pepcid PO 20 mg BID JOSE Administration Furosemide 40 mg 01/20/19 09:00 01/20/19 09:00 Lasix PO 40 mg DAILY JOSE Administration Ibuprofen 400 mg 01/19/19 09:08 01/20/19 09:00 Motrin PO 400 mg Q8H JOSE Administration Polyethylene Glycol 17 gm 01/19/19 09:00 01/20/19 09:13 Miralax PO Not Given DAILY JOSE Potassium Chloride 10 meq 01/19/19 08:00 01/20/19 09:00 Klor-Con 10 PO 10 meq QAM-WM JOSE Administration Tamsulosin HCl 0.4 mg 01/19/19 09:00 01/20/19 09:00 Flomax PO 0.4 mg DAILY JOSE Administration - Exam General Appearance: NAD, awake alert Eye: PERRL, anicteric sclera ENT: no oropharyngeal lesions, moist mucosa Neck: supple, no JVD Heart: RRR, no murmur Respiratory: no wheezes, no rales, rhonchi Gastrointestinal: soft, non-tender, normal bowel sounds Extremities: no cyanosis, no edema Neurological: cranial nerve grossly intact, no focal deficits Psychiatric: normal affect, A&O x 3 Hosp A/P (1) S/P CABG x 3 Code(s): Z95.1 - PRESENCE OF AORTOCORONARY BYPASS GRAFT Status: Acute (2) CAD (coronary artery disease) Code(s): I25.10 - ATHSCL HEART DISEASE OF [place] CORONARY ARTERY W/O ANG PCTRS Status: Acute Qualifiers: Coronary Disease-Associated Artery/Lesion type: bypass graft [place] vs. transplanted heart: [place] heart (3) HLD (hyperlipidemia) Code(s): E78.5 - HYPERLIPIDEMIA, UNSPECIFIED Status: Chronic Qualifiers: Hyperlipidemia type: unspecified Qualified Code(s): E78.5 - Hyperlipidemia , unspecified (4) HTN (hypertension) Code(s): I10 - ESSENTIAL (PRIMARY) HYPERTENSION Status: Chronic Qualifiers: Hypertension type: essential hypertension Qualified Code(s): I10 - Essential (primary) hypertension (5) Atrial fibrillation Code(s): I48.91 - UNSPECIFIED ATRIAL FIBRILLATION Status: Chronic - Plan s/p cabg for 3 vessel disease with left atrial appendage ligation, doing well continue asp, coreg, lasix, flomax, motrin prn, i.spirometry mild jed resolved had normal ef on cath around 60%, recieved around 100ml of isovue for cath and cta, creatinine is trending down towards baseline. to mobilize with cardiac rehab hemostable d/w patient and family at bedside, is agreable to go to rehab/swing bed
--- NOTE | 2019-01-20 16:09 | PRG ---
DATE OF SERVICE: 01/20/2019 SUBJECTIVE: Theodore Hampton has no complaints. He is complaining of chest discomfort when he coughs, but other than that, he says he is doing pretty well. OBJECTIVE: VITAL SIGNS: He is afebrile, heart rate is 84, respiratory rate is 17, oximetry is 93% on room air, blood pressure 147/67. LUNGS: Clear. HEART: Regular rhythm. ABDOMEN: Soft. IMPRESSION: 1. Atelectasis, predominantly at the left base, likely associated with his recent heart surgery. 2. Status post coronary artery bypass grafting. 3. History of smoking. No history of chronic obstructive pulmonary disease. 4. Atrial fibrillation, status post left atrial appendage ligation. PLAN: Continue supportive care. Continue cardiac rehab. Job ID: [id number]
[2019-01-21] MEDS: Ibuprofen 200 MG TAB PO SCH ×3 (00:23→16:28)
[2019-01-21] MEDS ORDERED: Sodium Chloride 0.9% 10 ML ONE (08:04)
[2019-01-21] MEDS: Carvedilol 6.25 MG TAB PO SCH ×2 (08:25→16:27)
[2019-01-21] MEDS: Potassium Chloride 10 MEQ TAB PO SCH (08:25)
[2019-01-21] MEDS: Aspirin 325 mg Enteric Coated Tablet PO SCH (08:25)
[2019-01-21] MEDS: Furosemide 40 MG TAB PO SCH (08:25)
[2019-01-21] MEDS: Tamsulosin HCl 0.4 MG CAP PO SCH (08:25)
[2019-01-21] MEDS: Famotidine 20 MG TAB PO SCH ×2 (08:25→20:06)
[2019-01-21] MEDS: Polyethylene Glycol 3350 17 GM Packet PO SCH (08:26)
--- NOTE | 2019-01-21 13:41 | PDOC.HOSPP ---
- Subjective Encounter Date: 01/21/19 Encounter Time: 10:35 Subjective: no sob or palp is eating his breakfast - Objective Vital Signs & Weight: Vital Signs (12 hours) Temp Pulse Pulse Pulse Resp BP BP 01/21/19 11:52 82 88 143/63 H 116/73 01/21/19 11:15 97.5 F L 88 20 01/21/19 08:23 97.6 F 87 20 01/21/19 03:00 97.3 F L 86 20 BP BP BP Pulse Ox Pulse Ox Pulse Ox 01/21/19 11:52 92 L 95 01/21/19 11:15 129/67 92 L 01/21/19 08:23 116/76 94 L 01/21/19 03:00 111/58 L 93 L Weight Weight 260 lb 2.327 oz Most Recent Monitor Data Heart Rate from ECG 109 NIBP 123/79 NIBP BP-Mean 93 Respiration from ECG 24 SpO2 93 I&O: 01/20/19 01/21/19 01/22/19 06:59 06:59 06:59 Intake Total 945 1170 Output Total 250 Balance 695 1170 Result Diagrams: 01/19/19 04:12 01/20/19 04:24 Hospitalist ROS - Medication Medications: Active Medications Generic Name Dose Route Start Last Admin Trade Name Freq PRN Reason Stop Dose Admin Aspirin 325 mg 01/19/19 09:00 01/21/19 08:25 Ecotrin PO 325 mg DAILY JOSE Administration Carvedilol 6.25 mg 01/19/19 08:00 01/21/19 08:25 Coreg PO 6.25 mg BID-WM JOSE Administration Famotidine 20 mg 01/19/19 21:00 01/21/19 08:25 Pepcid PO 20 mg BID JOSE Administration Furosemide 40 mg 01/20/19 09:00 01/21/19 08:25 Lasix PO 40 mg DAILY JOSE Administration Ibuprofen 400 mg 01/19/19 09:08 01/21/19 08:26 Motrin PO 400 mg Q8H JOSE Administration Polyethylene Glycol 17 gm 01/19/19 09:00 01/21/19 08:26 Miralax PO Not Given DAILY JOSE Potassium Chloride 10 meq 01/19/19 08:00 01/21/19 08:25 Klor-Con 10 PO 10 meq QAM-WM JOSE Administration Tamsulosin HCl 0.4 mg 01/19/19 09:00 01/21/19 08:25 Flomax PO 0.4 mg DAILY JOSE Administration - Exam General Appearance: NAD, awake alert Eye: PERRL, anicteric sclera ENT: no oropharyngeal lesions, moist mucosa Neck: supple, no JVD Heart: RRR, no murmur Respiratory: no wheezes, no rales Gastrointestinal: soft, non-tender, non-distended, normal bowel sounds Extremities: no cyanosis, no edema Neurological: cranial nerve grossly intact, no focal deficits Psychiatric: normal affect, A&O x 3 Hosp A/P (1) S/P CABG x 3 Code(s): Z95.1 - PRESENCE OF AORTOCORONARY BYPASS GRAFT Status: Acute (2) CAD (coronary artery disease) Code(s): I25.10 - ATHSCL HEART DISEASE OF [place] CORONARY ARTERY W/O ANG PCTRS Status: Acute Qualifiers: Coronary Disease-Associated Artery/Lesion type: bypass graft [place] vs. transplanted heart: [place] heart (3) HLD (hyperlipidemia) Code(s): E78.5 - HYPERLIPIDEMIA, UNSPECIFIED Status: Chronic Qualifiers: Hyperlipidemia type: unspecified Qualified Code(s): E78.5 - Hyperlipidemia , unspecified (4) HTN (hypertension) Code(s): I10 - ESSENTIAL (PRIMARY) HYPERTENSION Status: Chronic Qualifiers: Hypertension type: essential hypertension Qualified Code(s): I10 - Essential (primary) hypertension (5) Atrial fibrillation Code(s): I48.91 - UNSPECIFIED ATRIAL FIBRILLATION Status: Chronic - Plan s/p cabg for 3 vessel disease with left atrial appendage ligation, doing well continue asp, coreg, lasix, flomax, motrin prn, i.spirometry mild jed resolved had normal ef on cath around 60%, recieved around 100ml of isovue for cath and cta, creatinine is trending down towards baseline. to mobilize with cardiac rehab hemostable d/w patient and family at bedside, is agreable to go to rehab/swing bed may dc to rehab if ok with CTS
--- NOTE | 2019-01-21 14:24 | PRG ---
DATE OF SERVICE: 01/21/2019 SUBJECTIVE: The patient is doing better. He is ready to go to rehab. He has no acute pulmonary complaints. OBJECTIVE: VITAL SIGNS: On exam, his temperature is 97.5, pulse 88, respirations 20, and saturations 92% on room air. HEENT: Unremarkable. NECK: No adenopathy or JVD. LUNGS: Clear. CARDIAC: S1 and S2, regular. ABDOMEN: Soft. EXTREMITIES: No edema. ASSESSMENT: 1. Atelectasis. 2. Status post coronary artery bypass grafting surgery. 3. Paroxysmal atrial fibrillation. PLAN: From a pulmonary standpoint, he is doing well and I would dissipate his discharge to rehab soon. No further Pulmonary recommendations. We will sign off. Job ID: [id number]
[2019-01-21] MEDS ORDERED: Methyl Salicylate/Menthol 85 GM TUBE TOP PRN (23:06)
[2019-01-22] MEDS: Ibuprofen 200 MG TAB PO SCH ×2 (00:15→09:06)
[2019-01-22] MEDS: Polyethylene Glycol 3350 17 GM Packet PO SCH (09:05)
[2019-01-22] MEDS: Aspirin 325 mg Enteric Coated Tablet PO SCH (09:06)
[2019-01-22] MEDS: Famotidine 20 MG TAB PO SCH (09:06)
[2019-01-22] MEDS: Furosemide 40 MG TAB PO SCH (09:06)
[2019-01-22] MEDS: Potassium Chloride 10 MEQ TAB PO SCH (09:06)
[2019-01-22] MEDS: Carvedilol 6.25 MG TAB PO SCH (09:07)
[2019-01-22] MEDS: Tamsulosin HCl 0.4 MG CAP PO SCH (09:07)
--- NOTE | 2019-01-22 12:25 | PDOC.HOSPP ---
- Subjective Encounter Date: 01/22/19 Encounter Time: 08:00 Subjective: Pt seen for followup re: CAD. States he feels well, no complaints today. - Objective Vital Signs & Weight: Vital Signs (12 hours) Temp Pulse Pulse Pulse Resp BP BP 01/22/19 11:48 90 93 131/79 01/22/19 09:07 130/63 01/22/19 08:00 97.8 F 88 16 01/22/19 03:30 97.4 F L 85 20 BP BP BP Pulse Ox Pulse Ox Pulse Ox 01/22/19 11:48 155/67 H 94 L 95 01/22/19 09:07 01/22/19 08:00 130/63 97 01/22/19 03:30 115/59 L 92 L Weight Weight 260 lb 4.16 oz Most Recent Monitor Data Heart Rate from ECG 109 NIBP 123/79 NIBP BP-Mean 93 Respiration from ECG 24 SpO2 93 I&O: 01/21/19 01/22/19 01/23/19 06:59 06:59 06:59 Intake Total 1170 1210 128 Balance 1170 1210 128 Result Diagrams: 01/19/19 04:12 01/20/19 04:24 Additional Labs: Labs and MARs reviewed by me EKG Reviewed by me: Yes (Tele: deanne canales) Hospitalist ROS - Review of Systems Cardiovascular: denies: chest pain, palpitations, orthopnea, paroxysmal noc. dyspnea, edema, light headedness Gastrointestinal: denies: nausea, vomiting, abdominal pain, diarrhea, constipation, melena, hematochezia - Medication Medications: Active Medications Generic Name Dose Route Start Last Admin Trade Name Kevin PRN Reason Stop Dose Admin Acetaminophen 650 mg 01/19/19 09:08 01/21/19 19:30 Tylenol PO 650 mg Q6H PRN Administration Headache/Fever or Pain Aspirin 325 mg 01/19/19 09:00 01/22/19 09:06 Ecotrin PO 325 mg DAILY JOSE Administration Carvedilol 6.25 mg 01/19/19 08:00 01/22/19 09:07 Coreg PO 6.25 mg BID-WM JOSE Administration Famotidine 20 mg 01/19/19 21:00 01/22/19 09:06 Pepcid PO 20 mg BID JOSE Administration Furosemide 40 mg 01/20/19 09:00 01/22/19 09:06 Lasix PO 40 mg DAILY JOSE Administration Ibuprofen 400 mg 01/19/19 09:08 01/22/19 09:06 Motrin PO 400 mg Q8H JOSE Administration Menthol/Methyl Salicylate 0.5 gm 01/21/19 23:06 01/22/19 00:16 Muscle Rub Cream (Bengay) TOP 0.5 gm QID PRN Administration Muscle Pain Polyethylene Glycol 17 gm 01/19/19 09:00 01/22/19 09:05 Miralax PO 17 gm DAILY JOSE Administration Potassium Chloride 10 meq 01/19/19 08:00 01/22/19 09:06 Klor-Con 10 PO 10 meq QAM-WM JOSE Administration Tamsulosin HCl 0.4 mg 01/19/19 09:00 01/22/19 09:07 Flomax PO 0.4 mg DAILY JOSE Administration - Exam General - other findings: Obese Eye: anicteric sclera ENT: moist mucosa Neck: supple, no JVD Heart: irregular Respiratory: CTAB, no rales Gastrointestinal: soft, non-tender Extremities: no clubbing Musculoskeletal: no muscle wasting Psychiatric: normal affect, normal behavior Hosp A/P (1) CAD (coronary artery disease) Code(s): I25.10 - ATHSCL HEART DISEASE OF [place] CORONARY ARTERY W/O ANG PCTRS Status: Acute Qualifiers: Coronary Disease-Associated Artery/Lesion type: bypass graft [place] vs. transplanted heart: [place] heart (2) S/P CABG x 3 Code(s): Z95.1 - PRESENCE OF AORTOCORONARY BYPASS GRAFT Status: Acute (3) HLD (hyperlipidemia) Code(s): E78.5 - HYPERLIPIDEMIA, UNSPECIFIED Status: Chronic Qualifiers: Hyperlipidemia type: unspecified Qualified Code(s): E78.5 - Hyperlipidemia , unspecified (4) HTN (hypertension) Code(s): I10 - ESSENTIAL (PRIMARY) HYPERTENSION Status: Chronic Qualifiers: Hypertension type: essential hypertension Qualified Code(s): I10 - Essential (primary) hypertension (5) Atrial fibrillation Code(s): I48.91 - UNSPECIFIED ATRIAL FIBRILLATION Status: Chronic - Plan out of bed/ambulate Continue Coreg and aspirin. Pt awaiting Rehab.
[2019-01-22 12:38] VITALS: BP 135/71; TEMP 98.1
--- NOTE | 2019-01-22 16:03 | PDOC.CPN ---
- Subjective Date: 01/22/19 Time: 13:45 Interval history: Dong very well. Had BM this morning. Walking with PT. - Review of Systems General: reports: fever/chills, weight/appetite/sleep changes, night sweats, fatigue Respiratory: denies: cough, congestion, shortness of breath, exercise intolerance Cardiovascular: denies: chest pain, palpitation, edema, paroxysmal nocturnal dyspnea, orthopnea Gastrointestinal: denies: nausea, vomiting, diarrhea, constipation, abd pain, GI bleeding Musculoskeletal: denies: pain, tenderness, stiffness, swelling, arthritis/ arthralgias Neurological: denies: numbness, syncope, seizure, weakness - Objective Allergies/Adverse Reactions: Allergies Allergy/AdvReac Type Severity Reaction Status Date / Time shellfish derived Allergy Verified 11/03/15 18:08 [id number]-Wyi Reductase Allergy Verified 11/21/13 16:33 Inhibitor Visit Medications: Current Medications Acetaminophen (Tylenol) 650 mg PO Q6H PRN PRN Reason: Headache/Fever or Pain Last Admin: 01/21/19 19:30 Dose: 650 mg Al Hydroxide/Mg Hydroxide (Maalox) 30 ml PO Q4H PRN PRN Reason: Indigestion Albuterol/Ipratropium (Duoneb) 3 ml NEB [id number] PRN PRN Reason: Respiratory Distress Apixaban (Eliquis) 5 mg PO BID [facility] Aspirin (Ecotrin) 325 mg PO DAILY [facility] Last Admin: 01/22/19 09:06 Dose: 325 mg Bisacodyl (Dulcolax) 10 mg PO Q12H PRN PRN Reason: Constipation Bisacodyl (Dulcolax) 10 mg [place] Q12H PRN PRN Reason: Constipation Carvedilol (Coreg) 6.25 mg PO BID-[facility] Last Admin: 01/22/19 09:07 Dose: 6.25 mg Diphenhydramine HCl (Benadryl) 25 mg PO Q6H PRN PRN Reason: Itching & Insomnia or Tyrone Parminder Famotidine (Pepcid) 20 mg PO BID [facility] Last Admin: 01/22/19 09:06 Dose: 20 mg Furosemide (Lasix) 40 mg PO DAILY [facility] Last Admin: 01/22/19 09:06 Dose: 40 mg Guaifenesin/Dextromethorphan (Robitussin Dm) 15 ml PO Q4H PRN PRN Reason: Cough Ibuprofen (Motrin) 400 mg PO Q8H [facility] Last Admin: 01/22/19 09:06 Dose: 400 mg Magnesium Hydroxide (Milk Of Magnesium) 30 ml PO Q12H PRN PRN Reason: Constipation Menthol/Methyl Salicylate (Muscle Rub Cream (Bengay)) 0.5 gm TOP QID PRN PRN Reason: Muscle Pain Last Admin: 01/22/19 00:16 Dose: 0.5 gm Mineral Oil (Fleet Mineral Oil) 133 ml [place] DAILYPRN PRN PRN Reason: Constipation Nitroglycerin (Nitrostat) 0.4 mg SL Q5MIN PRN PRN Reason: Chest Pain Polyethylene Glycol (Miralax) 17 gm PO DAILY [facility] Last Admin: 01/22/19 09:05 Dose: 17 gm Potassium Chloride (Klor-Con 10) 10 meq PO QAM-WM [facility] Last Admin: 01/22/19 09:06 Dose: 10 meq Tamsulosin HCl (Flomax) 0.4 mg PO DAILY [facility] Last Admin: 01/22/19 09:07 Dose: 0.4 mg Vital Signs & Weight: Vital Signs Temp Pulse Pulse Pulse Resp BP BP 01/22/19 11:55 98.1 F 86 20 01/22/19 11:48 90 93 131/79 01/22/19 09:07 130/63 01/22/19 08:00 97.8 F 88 16 BP BP BP Pulse Ox Pulse Ox Pulse Ox 01/22/19 11:55 135/71 95 01/22/19 11:48 155/67 H 94 L 95 01/22/19 09:07 01/22/19 08:00 130/63 97 Weight 260 lb 4.16 oz - Physical Exam General: alert & oriented x3, appears well HEENT: normocephaly Neck: supple neck, midline trachea Cardiac: regular rate and rhythm, no murmur Lungs: normal breath sounds Neuro: grossly intact Abdomen: active bowel sounds, soft, non-tender Extremities: 1+ LE edema Skin: clear Musculoskeletal: no pain - Labs Result Diagrams: 01/19/19 04:12 01/20/19 04:24 Troponin/CKMB Troponin I Less than 0.010 ng/mL (< 0.028) 01/14/19 20:28 - Telemetry Sinus rhythms and dysrhythmias: sinus rhythm - Assessment/Plan Assessment/Plan: 1. CAD. 2. S/P CABG 3. Paroxysmal afib s/p CLARA ligation. PLAN: - CV stable. - Continue ASA for life - BB, will add low dose ACEI. - Intolerant to statins. - May discharge from cardiac perspective.
[2019-01-22] MEDS ORDERED: Apixaban 5 MG TAB PO SCH (21:00)
[2019-01-23] MEDS ORDERED: Lisinopril 2.5 MG TAB PO SCH (09:00)
--- NOTE | 2019-01-23 22:20 | PQF ---
CAL OLMEDO DAVID [id number] CLINICAL DOCUMENTATION CLARIFICATION FORM: POST DISCHARGE Addendum to original discharge summary date: ____ Late entry note date: __ DATE: 01/23/19 ATTN: Terry Michel Please exercise your independent, professional judgment in responding to the clarification form. Clinical indicators are provided on the bottom of this form for your review Please check appropriate box(s) to clarify if the following diagnosis has been ruled in or ruled out: Acute Hypoxic Respiratory Failure [ ] Ruled in diagnosis [ ] Continue to treat [ ] Resolved [ x ] Ruled out diagnosis [ ] Cannot rule out diagnosis [ ] Other diagnosis [ ] Unable to determine In addition, please specify: Present on Admission (POA): [ ] Yes [ ] No [ ] Unable to determine For continuity of documentation, please document condition throughout progress notes and discharge summary. Thank You. CLINICAL INDICATORS - SIGNS / SYMPTOMS / LABS PN 01/19 Dr Miller He is coughing intermittency but not bringing up any phlegm PN 01/19 Dr Miller Vital sign: Afebrile, Pulse 105, BP132/58, Resp rate 23 , saturation 97% PN 01/19 Dr Miller Atelectasis of right mid lung zone and likely left lower lobe PN 01/19 Dr Miller Extensive smoking history without a formal diagnosis of chronic obstructive pulonary disease RISK FACTORS PN 01/19 - Acute Hypoxic respiratory failure PN 01/19 - Atelectasis PN 01/19 - CAD s/p CABG TREATMENTS PN 01/19 -Oxygen on 3L nasal cannula Pulmonary Service 01/19 Lit Tello (This form is maintained as a part of the permanent medical record) 2014 [employer]. All Rights Reserved [email or web address] [not provided] MTDD
--- NOTE | 2019-01-24 14:02 | DIS ---
DATE OF ADMISSION: 01/16/2019 DATE OF DISCHARGE: 01/22/2019 PRIMARY CARE PROVIDER: Dr. Tino Kaminski. DISCHARGE DIAGNOSES: 1. Unstable angina. 2. Coronary artery disease. 3. Chronic atrial fibrillation. 4. Acute on chronic stage 3 renal failure. CONDITION OF PATIENT ON THE DAY OF DISCHARGE: Stable. I assessed Mr. Hampton on the day of discharge. Please refer to my daily hospitalist progress note for further details regarding this [id number] encounter. CONSULTATIONS DURING THIS HOSPITALIZATION: 1. Cardiology, Dr. Yoon. 2. Cardiovascular Surgery, Dr. Mensah. 3. Pulmonary and Critical Care Medicine, Dr. Miller. HOSPITAL COURSE: Mr. Hampton is a pleasant 84-year-old gentleman, who was admitted to [facility] on January 14, 2019, for unstable angina. He was seen by Cardiology Service. He had a cardiac catheterization, which showed severe two-vessel coronary artery disease due to bifurcation disease in LAD and RCA. Coronary artery bypass graft was recommended. On January 17, 2019, Mr. Hampton underwent left atrial appendage ligation and coronary artery bypass graft x3. He continued to improve clinically. He was evaluated by Therapy Services and was recommended inpatient rehab. He is being discharged to [facility]. DISCHARGE MEDICATIONS: 1. Nitroglycerin 0.4 mg sublingually every 5 minutes. 2. Allopurinol 200 mg daily. 3. Eliquis 5 mg daily. 4. Aspirin 325 mg daily. 5. Vitamin D3 1000 units daily. 6. Glucosamine 1 capsule daily. 7. Vitamin A and C one tablet daily. 8. Zantac 150 mg as needed. 9. Coreg 6.25 mg 2 times a day. 10. Lasix 40 mg daily. 11. Motrin 400 mg every 8 hours. 12. Potassium chloride 10 mEq daily. The patient is also advised to have his BMP checked in 5 days time. DISCHARGE DESTINATION: [facility]. TIME SPENT: Total amount of time spent coordinating this discharge 32 minutes. Job ID: [id number]
== END 2019-01-22 16:05 | DRG 234 ==
LOC: ERS 21:32 → 2NO 23:03 → OBSVTOIN 01-16 15:53 → CCU 01-17 13:49 → 2NO 01-19 08:54 → CCU 01-19 08:54 → 2NO 01-19 09:58
PROVIDERS: ADMIT Family Medicine; ATTEND Family Medicine
PROC: 021109W Bypass Coronary Artery, Two Arteries from Aorta with Autologous Venous Tissue, Open Approach (ICD-10-PCS; principal; 2019-01-17)
PROC: 4A023N7 Measurement of Cardiac Sampling and Pressure, Left Heart, Percutaneous Approach (ICD-10-PCS; 2019-01-17)
PROC: 02100Z9 Bypass Coronary Artery, One Artery from Left Internal Mammary, Open Approach (ICD-10-PCS; 2019-01-17)
PROC: 06BQ4ZZ Excision of Left Saphenous Vein, Percutaneous Endoscopic Approach (ICD-10-PCS; 2019-01-17)
PROC: B2111ZZ Fluoroscopy of Multiple Coronary Arteries using Low Osmolar Contrast (ICD-10-PCS; 2019-01-17)
PROC: B2151ZZ Fluoroscopy of Left Heart using Low Osmolar Contrast (ICD-10-PCS; 2019-01-17)
PROC: 5A1221Z Performance of Cardiac Output, Continuous (ICD-10-PCS; 2019-01-17)
PROC: 02L70ZK Occlusion of Left Atrial Appendage, Open Approach (ICD-10-PCS; 2019-01-17)
DX: I25.110 Atherosclerotic heart disease of native coronary artery with unstable angina pectoris (principal); I48.20 Chronic atrial fibrillation, unspecified; I50.32 Chronic diastolic (congestive) heart failure; J98.11 Atelectasis; N17.9 Acute kidney failure, unspecified; H35.30 Unspecified macular degeneration; I48.0 Paroxysmal atrial fibrillation; Z95.5 Presence of coronary angioplasty implant and graft; Z79.01 Long term (current) use of anticoagulants; Z95.0 Presence of cardiac pacemaker; Z90.49 Acquired absence of other specified parts of digestive tract; Z79.899 Other long term (current) drug therapy; Z79.82 Long term (current) use of aspirin; Z28.21 Immunization not carried out because of patient refusal; Z88.8 Allergy status to other drugs, medicaments and biological substances; Z91.041 Radiographic dye allergy status; Z87.891 Personal history of nicotine dependence
CPT/HCPCS: 36415; 36416; 36430; 71045; 76942; 80048; 80053; 82607; 82805; 82947; 84165; 84484; 85025; 85610; 85730; 86850; 86900; 86901; 93005; 93010; 93458; 93798; 94002; 94150; 94760; C1769; J0690; J1160; J1644; J1650; J1815; J1885; J1940; J2001; J2250; J2270; J2370; J2405; J2440; J2704; J2720; J3010; J3370; J3475; J3480; J3490; J7512; P9045; Q9967; S0017; S0028

== ENCOUNTER 2019-05-03 11:03 | Emergency (ER) | payer MEDICARE ==
[2019-05-03 11:39] LABS: #Eosinphils 0.5 thou/uL (0.0-0.7); #Lymphocytes 1.4 thou/uL (1.20-3.40); #Monocytes 0.7 thou/uL (0.11-0.59); #Neutrophils 3.6 thou/uL (1.40-6.50); %Basophils 0.5 % (0.0-1.0); %Eosinophils 7.9 % (0.0-10.0); %Monocytes 11.7 % (0.0-10.0); Hemoglobin 14.4 g/dL (14.0-18.0); Mean Corpuscular HGB CONC 32.2 g/dL (32.0-36.0); Mean Corpuscular Hemoglobin 30.3 pg (27.0-31.0); Mean Corpuscular Volume 94.3 fL (78.0-98.0); Mean Platelet Volume 7.6 fL (7.4-10.4); Platelet Count 269 thou/uL (130-400); RBC Distribution Width 16.1 % (11.5-14.5); Red Blood Cell (RBC) Count 4.75 mill/uL (4.70-6.10); White Blood Cell (WBC) Count 6.2 thou/uL (4.8-10.8)
[2019-05-03 11:51] LABS: Bilirubin Negative (Negative); Blood, Urine Negative (Negative); Clarity Clear (Clear); Glucose, Urine (Dipstick) Normal (Negative); Leukocyte Negative Leu/uL (Negative); Nitrite Negative (Negative); Protein, Urine (Dipstick) Negative (Neg-Trace); Urobilinogen Normal mg/dL (Less than 2)
[2019-05-03 12:21] LABS: ALT (SGPT) 15 U/L (8-55); AST (SGOT) 19 U/L (5-34); Albumin 4.1 g/dL (3.4-4.8); Alkaline Phosphatase 105 U/L (40-110); Anion Gap 12 mmol/L (10-20); BUN (Urea Nitrogen) 17 mg/dL (8.4-25.7); Bilirubin, Total 0.7 mg/dL (0.2-1.2); Calc. Creatinine Clearance 0 mL/min (70-130); Calcium 9.3 mg/dL (7.8-10.44); Carbon Dioxide 32 mmol/L (23-31); Chloride 100 mmol/L (98-107); Estimated GFR-MDRD 49; Globulin 2.8 g/dL (2.4-3.5); Glucose 106 mg/dL (83-110); Lipase 25 U/L (8-78); Potassium 4.5 mmol/L (3.5-5.1); Protein, Total 6.9 g/dL (5.8-8.1); Sodium 139 mmol/L (136-145)
[2019-05-03] MEDS ORDERED: Iopamidol-370 76% 500 ML 1 ML ONE (14:33)
--- NOTE | 2019-05-03 15:54 | CT ---
CT Abdomen Pelvis W Con History: Right lower quadrant pain Comparison: CT examination 2018 Findings: Mild scarring in the lung bases. No pericardial effusion. New medial sternotomy wires from the comparison exam is some mild postsurgical changes. There is port al venous gas likely from prior sphincterotomy. Prior cholecystectomy. Liver, pancreas, adrenal glands are unremarkable. No hydronephrosis. Incidental note is made of a splenule. Moderate diverticular disease sigmoid colon without active current inflammation. The appendix is visu alized and is normal. The aortoiliac contour is nonaneurysmal. Superior mesenteric artery and celiac trunk are both patent. Multilevel degenerative disease of the lumbar spine. Old injury of the sacrum and S5. Small fat-containing left indirect inguinal hernia. Small fat-containing periumbilical hernia. No steve dence for bowel obstruction. Extensive enthesopathic changes of the hamstring tendons. Impression: 1. No acute inflammatory process within the abdomen or pelvis. 2. Prior cholecystectomy and portal venous gas, similar to the comparison exam. 3. Normal appendix. 4. Moderate diverticular disease sigmoid colon without active current inflammation. 5. Small fat-containing left indirect inguinal hernia. 6. Small fat-containing periumbilical hernia. 7. No evidence of recent median sternotomy.
== END 2019-05-03 16:23 | disposition home or self-care (01) ==
LOC: ERS 11:03
DX: R10.31 Right lower quadrant pain (principal); I48.91 Unspecified atrial fibrillation; Z87.891 Personal history of nicotine dependence; Z79.01 Long term (current) use of anticoagulants; Z79.82 Long term (current) use of aspirin; Z79.899 Other long term (current) drug therapy
CPT/HCPCS: 36415; 74177; 80053; 81003; 83690; 85025; Q9967

== ENCOUNTER 2019-11-11 05:43 | Outpatient (CLI) | payer MEDICARE, OTHER ==
[2019-11-11 13:58] LABS: #Eosinphils 0.3 thou/uL (0.0-0.7); #Lymphocytes 1.3 thou/uL (1.20-3.40); #Monocytes 0.9 thou/uL (0.11-0.59); #Neutrophils 4.2 thou/uL (1.40-6.50); %Basophils 0.5 % (0.0-1.0); %Eosinophils 4.9 % (0.0-10.0); %Lymphocytes 19.1 % (21.0-51.0); %Neutrophils 62.6 % (42.0-75.0); Hemoglobin 15.2 g/dL (14.0-18.0); Mean Corpuscular HGB CONC 32.8 g/dL (32.0-36.0); Mean Corpuscular Hemoglobin 33.3 pg (27.0-31.0); Mean Platelet Volume 8.6 fL (7.4-10.4); Platelet Count 205 thou/uL (130-400); Red Blood Cell (RBC) Count 4.56 mill/uL (4.70-6.10); White Blood Cell (WBC) Count 6.7 thou/uL (4.8-10.8)
[2019-11-11 14:47] LABS: Anion Gap 17 mmol/L (10-20); BUN (Urea Nitrogen) 16 mg/dL (8.4-25.7); Calc. Creatinine Clearance 0 mL/min (70-130); Calcium 9.2 mg/dL (7.8-10.44); Carbon Dioxide 27 mmol/L (23-31); Chloride 104 mmol/L (98-107); Estimated GFR-MDRD 55; Glucose 117 mg/dL (83-110); Potassium 4.5 mmol/L (3.5-5.1); Sodium 143 mmol/L (136-145)
[2019-11-12 14:46] LABS: SARS-CoV-2 MS2 Positive; SARS-CoV-2 N Gene Negative; SARS-CoV-2 S Gene Negative; SARS-CoV-2 by NAA Not Detected (NotDetected); SARS-CoV-2 orf1ab Negative
--- NOTE | 2019-11-14 15:39 | EKG ---
Test Reason : Blood Pressure : / mmHG Vent. Rate : 069 BPM Atrial Rate : 277 BPM P-R Int : 000 ms QRS Dur : 080 ms QT Int : 360 ms P-R-T Axes : 000 071 063 degrees QTc Int : 385 ms Atrial fibrillation with frequent ventricular-paced complexes Abnormal ECG No previous ECGs available Confirmed by PATO PONCE M.D. ([id number]) on 11/14/2019 3:38:45 PM Referred By: RADHA Confirmed By:PATO PONCE M.D.
== END 2019-11-11 05:44 | disposition home or self-care (01) ==
LOC: LABBT 05:43
PROVIDERS: ATTEND Surgery
DX: Z01.818 Encounter for other preprocedural examination (principal); K40.90 Unilateral inguinal hernia, without obstruction or gangrene, not specified as recurrent; K42.9 Umbilical hernia without obstruction or gangrene; Z20.828 Contact with and (suspected) exposure to other viral communicable diseases
CPT/HCPCS: 80048; 85025; 93005; U0003; 87635; 93010

== ENCOUNTER 2019-11-16 06:59 | Day surgery (SDC) | payer MEDICARE ==
[2019-11-16] MEDS ORDERED: Bupivacaine 0.25% HCL 30 ML VIAL ONE (08:12)
[2019-11-16] MEDS ORDERED: Lidocaine 1% w/Epinephrine 1:100K 20 ML VIAL ONE (08:12)
[2019-11-16] MEDS ORDERED: Fentanyl 100 MCG/2 ML VIAL ONE (08:37)
--- NOTE | 2019-11-16 11:26 | OP ---
DATE OF PROCEDURE: 11/16/2019 PREOPERATIVE DIAGNOSES: Left inguinal hernia, umbilical hernia. PROCEDURES PERFORMED: Left inguinal hernia repair with mesh, umbilical hernia repair with mesh. INDICATIONS: This is an 84-year-old male, who had a painful left inguinal hernia, also had an umbilical hernia that bothered him. FINDINGS: He had a direct left inguinal hernia and a 1.5 cm defect in the umbilicus. DESCRIPTION OF PROCEDURE: After informed consent was obtained, the patient was taken to the operating room, given general mask anesthesia, placed in supine position. His abdomen and groin were prepped and draped in usual fashion. Local anesthesia was infiltrated subcutaneously and deep, and a transverse left inguinal incision was performed, subcu divided sharply. The fascia external oblique was incised in direction of its fibers to the external ring. Spermatic cord was isolated with a Jacinto drain. Cremasteric fibers . There was no indirect component. There was moderate-sized direct inguinal hernia, which was circumscribed and reduced. Reduction was maintained with a PHS hernia system. The posterior layer placed in the preperitoneal space, anterior was laid out, sutured to the pubic tubercle with a 2-0 Prolene suture. Tucked under the external oblique fascia laterally. A notch was cut out for the spermatic cord. The hemostasis was achieved. Cord placed anatomically and the external oblique fascia closed over the cord with a running 3-0 Vicryl. Олег was closed with interrupted 3-0 Vicryl and skin closed with a running subcuticular 4-0 Rapide. Steri-Strips applied. Then, a subumbilical incision was performed, subcu divided sharply. The hernia sac was dissected from the skin and then circumferentially down to the fascia and excised, it was reduced. The actual defect was 1.5 cm, 6.4 cm PROCEED mesh inserted intra-abdominally. Its wings were sutured to the fascia with interrupted 0 Ethibond as well as superior and inferiorly. Then, after hemostasis was achieved, the skin was sutured to the fascia with interrupted 3-0 Vicryl. Then, the skin closed with interrupted 4-0 Rapide. Steri-Strips applied. Sterile bandage applied. The patient tolerated the procedure well, transferred to Recovery in good condition. Sponge and needle count verified correct x2. Job ID: [id number]
[2019-11-16] MEDS ORDERED: HYDROcodone/Acetaminophen 5/325 mg Tablet ONE (12:29)
[2019-11-16] MEDS ORDERED: Lidocaine 1% PF 5 ML VIAL ONE (15:05)
[2019-11-16] MEDS ORDERED: PHENYLEPHRINE-NS 100 MCG/ML 10 ML SYRINGE ONE (15:05)
[2019-11-16] MEDS ORDERED: Ondansetron PF 4 MG/2 ML Vial ONE (15:05)
[2019-11-16] MEDS ORDERED: PROPOFOL 200 MG/20 ML VIAL ONE (15:05)
[2019-11-16] MEDS ORDERED: Dexamethasone 20 MG/5 ML VIAL ONE (15:05)
== END 2019-11-16 12:45 | disposition home or self-care (01) ==
LOC: SDC 06:59
PROVIDERS: ATTEND Surgery
PROC: 0YU60JZ Supplement Left Inguinal Region with Synthetic Substitute, Open Approach (ICD-10-PCS; principal; 2019-11-16)
PROC: 0WUF0JZ Supplement Abdominal Wall with Synthetic Substitute, Open Approach (ICD-10-PCS; 2019-11-16)
DX: K40.90 Unilateral inguinal hernia, without obstruction or gangrene, not specified as recurrent (principal); K42.9 Umbilical hernia without obstruction or gangrene; I25.10 Atherosclerotic heart disease of native coronary artery without angina pectoris; I10 Essential (primary) hypertension; E78.00 Pure hypercholesterolemia, unspecified; Z79.01 Long term (current) use of anticoagulants; Z79.82 Long term (current) use of aspirin; Z79.899 Other long term (current) drug therapy; Z88.8 Allergy status to other drugs, medicaments and biological substances; Z91.013 Allergy to seafood; Z95.0 Presence of cardiac pacemaker; Z95.1 Presence of aortocoronary bypass graft; Z95.5 Presence of coronary angioplasty implant and graft
CPT/HCPCS: C1781; J0690; J1100; J2405; J2704; J3010; S0020

== ENCOUNTER 2022-12-04 13:48 | Outpatient (CLI) | payer MEDICARE | END 2022-12-04 13:49 | disposition home or self-care (01) | LOC: BICMAMMO 13:48 | PROVIDERS: ATTEND Family Medicine | DX: N63.20 Unspecified lump in the left breast, unspecified quadrant (principal) | CPT/HCPCS: 77066; G0279 ==